=== PATIENT | female | born 1950 | race Caucasian/White ===

== ENCOUNTER 2018-12-09 10:05 | Inpatient (IN) | payer MEDICARE ==
[~2018-12-09] VITALS: Ht 162.6 cm; Wt 58.3 kg
[2018-12-09 11:17] LABS: BASOPHILS ABSOLUTE AUTO 0.06 K/mm3 (0.00-0.23); BASOPHILS PERCENT AUTO 1 % (0-2); EOSINOPHILS ABSOLUTE AUTO 0.03 K/mm3 (0.00-0.68); EOSINOPHILS PERCENT AUTO 0 % (0-6); Hematocrit 42.9 % (33.0-51.0); Hemoglobin 14.7 g/dL (11.5-16.0); IMMATURE GRAN ABSOLUTE AUTO 0.03 K/mm3 (0.00-0.10); IMMATURE GRAN PERCENT AUTO 0 % (0-1); LYMPHOCYTES ABSOLUTE AUTO 1.03 K/mm3 (0.84-5.20); LYMPHOCYTES PERCENT AUTO 12 % (21-46); MONOCYTES ABSOLUTE AUTO 0.66 K/mm3 (0.16-1.47); MONOCYTES PERCENT AUTO 8 % (4-13); Mean Corpuscular HGB 33.9 pg (26.0-34.0); Mean Corpuscular HGB Conc 34.3 g/dL (31.5-36.5); Mean Corpuscular Volume 99 fL (80-100); NEUTROPHILS ABSOLUTE AUTO 6.79 K/mm3 (1.96-9.15); NEUTROPHILS PERCENT AUTO 79 % (41-73); Platelet Count 277 K/mm3 (150-400); RDW Coefficient Variation 13.7 % (11.7-14.2); RDW Standard Deviation 50.4 fL (35.1-46.3); Red Blood Cell Count 4.33 M/mm3 (3.80-5.20)
[2018-12-09 11:28] LABS: Troponin I 0.069 ng/mL (0.000-0.040)
[2018-12-09 11:30] LABS: Alanine Aminotransfer (ALT/SGP 19 U/L (12-78); Albumin, Blood 3.6 g/dL (3.4-5.0); Albumin/Globulin Ratio 0.9 (0.8-1.8); Alk Phos 49 U/L (50-136); Anion Gap 9 mmol/L (6-16); Aspartate Aminotrans (AST/SGOT 24 U/L (12-37); Blood Urea Nitrogen 5 mg/dL (8-24); Bun/Creatinine Ratio 9.6 (12.0-20.0); CO2, Blood 34 mmol/L (21-32); Calcium, Blood 8.9 mg/dL (8.5-10.1); Chloride, Blood 98 mmol/L (98-108); Creatinine, Blood 0.52 mg/dL (0.40-1.00); Glomerular Filtration Rate >60 (60-); Glucose, Blood 103 mg/dL (70-99); Potassium, Blood 1.6 mmol/L (3.5-5.5); Sodium, Blood 141 mmol/L (136-145); Total Protein, Blood 7.6 g/dL (6.4-8.2)
[2018-12-09 12:15] LABS: Base Excess Venous 10.9 mmol/L; Bicarbonate Venous 32.6 mmol/L (24.0-30.0); PCO2 Venous 49.8 mmHg (38-42); PO2 Venous 49.5 mmHg (38-42); pH Blood Venous 7.45 (7.34-7.37)
[2018-12-09 13:12] LABS: Creatine Kinase MB 3.9 ng/mL (0.0-3.6); Creatine Kinase MB Index 2.4 (0.0-4.0)
[2018-12-09 13:55] LABS: Calcium, Ionized (POC) 0.94 mmol/L (1.10-1.46); Chloride (POC) 98 mmol/L (98-108); Creatinine (POC) 0.6 mg/dL (0.6-1.0); Glucose (ISTAT POC) 88 mg/dL (70-99); Hemoglobin (POC) 14.3 g/dL (12.0-16.0); Potassium (POC) <2.0 mmol/L (3.5-5.5); Sodium (POC) 143 mmol/L (135-148); Total CO2 (POC) 30 mmol/L (21-32)
[2018-12-09 17:03] LABS: Source, Urine Voided
[2018-12-09 17:37] LABS: Appearance, Urine Hazy (Clear); Bilirubin, Urine Neg (Neg); Blood, Urine 1+ (Neg); Color, Urine Yellow (P-Yellow); Glucose Qualitative, Urine Neg (Neg); Ketones, Urine Neg (Neg); Leukocyte Esterase, Urine 1+ (Neg); Nitrite, Urine Neg (Neg); Protein, Urine 2+ (Neg); Specific Gravity, Urine 1.005 (1.003-1.022); Urobilinogen, Urine NORM (Normal)
[2018-12-09 17:45] LABS: Red Blood Cells, Urine 0-2 /hpf (0-2); Squamous Epithelial Cells Mod /hpf (Few)
[2018-12-09 17:46] LABS: Bacteria Many /hpf
[2018-12-09 17:50] LABS: U Amphetamine Screen Not Detected; U Barbituate Screen Not Detected; U Benzodiazapine Screen Not Detected; U Buprenorphine Screen Not Detected; U Cannabinoids Screen Not Detected; U Cocaine Screen Not Detected; U Methadone Screen Not Detected; U Methamphetamine Screen Not Detected; U Opiates Screen Not Detected; U Oxycodone Screen Not Detected; U Phencyclidine Screen Not Detected; U Propoxyphene Screen Not Detected
--- NOTE | 2018-12-09 18:35 | NUR ---
REPORT RECEIVED FROM JUAN WINTER, ER DEPT., PATIENT ARRIVED VIA GURNEY AND WAS MOVED FROM BED TO RNEY BY 4 ASSIST, PATIENT SCREAMED IN PAIN D/T PAIN AND SWELLING IN BILATERAL LOWER EXTREMITIES, PATIENT WAS PLACED ON MONITOR, ARRIVED IN ICU WITH TEMPERATURE NAVAS, AFEBRILE, ADMISSION WEIGHT WAS 68.2 KG, PATIENT IS ON NICARDIPINE DRIP FOR HYPERTENSIVE EMERGENCY DIAGNOSIS AND BLOOD PRESSURES IN 230'S UPON ARRIVAL AT THE ER, ALSO 20 MEQ OF POTASSIUM INFUSING WITH ANOTHER BAG OF POTASSIUM WAITING TO BE INFUSED, PATIENT ROLLED WELL, LUNG SOUNDS CLEAR, PREVENTATIVELY PLACED ON 3 L NC, HR IN 80'S TO 100'S AT THIS TIME, SKIN DRY, AND SHOWS BLISTER ON LEFT BUTTOCK, PIV'S X 2 IN RIGHT FA 20 G BT'S ARE PRESENT, PATIENT IS ALERT AND ORIENTED AND ABLE TO ANSWER ALL QUESTIONS AND FOLLOW COMMANDS, CALL LIGHT IN REACH, WILL CONTINUE TO MONITOR AND GIVE REPORT TO ONCOMING AUTO BODY STRAIGHTENER.
--- NOTE | 2018-12-09 19:15 | NUR ---
ASSUMING CARE OF PT AT THIS TIME. PT REPORT RECEIVED AT BEDSIDE WITH OFFGOING NURSE, CARTER MARTINEZ. PT LAYING IN BED, SLEEPING UPON ENTERING THE ROOM. VS STABLE - SEE VS FS. CARDENE DRIP 2.5 MG/HR. PT DOES NOT APPEAR TO BE IN DISTRESS AT THIS TIME. WILL REVIEW PLAN OF CARE.
--- NOTE | 2018-12-09 19:30 | NUR ---
ASSESSMENT PT HX COMPLETED WITH PT. PT CALM, QUIET, COOPERATIVE, RESPONDS TO VERBAL STIMULI, SPONT OPENS EYES, A&O X4, TALKS AND ANSWERS QUESTIONS APPROPRIATELY, SMILING AT STAFF, DROWSY, LETHARGIC, OCC SLOW TO SPOND. PT STATES RECENT DIFFICULTY AT HOME COMPLETING ADL'S D/T "SWELLING IN MY LEGS". SENSATION INTACT BUE'S. DENIES N/T BUE'S. N/T BLE'S. PT STATES N/T TO BLE'S STARTED "6 MONTHS AGE WHEN THE SWELLING STARTED". PT KEE. NORMAL STRENGTH BUE'S. WEAKNESS BLE'S. PT STATES USING WALKER AT HOME. PT STATES "I HAVE BEEN WALKING AROUND LESS AND LESS AT HOME BECAUSE MY LEGS ARE SWOLLEN AND THEY HURT". PT ASSISTS WITH TURNS. PT C/O PAIN IN BLE'S. MEDICATED WITH TYLENOL PER PHYSICIAN'S ORDER / UTILIZED NONPHARM METHODS. PT STATES PAIN IN BLE'S IS TOLERABLE AFTER ADMINISTERING TYLENOL. PT STATES ONSTE OF PAIN IN BLE'S WAS 6 MONTHS AGO. PT STATES "I HAVE BEEN FEELING MORE DEPRESSED LATELY BECAUSE IT'S HARDER TO GET AROUND". PT DENIES SI. LUNGS CLEAR, LOWER LOBES DIMINISHED. SHALLOW BREATHING. PT ON 3L NC. OXY SAT >95%. RR 18. PT PLACED ON RA, BUT OXY SAT <90% WHILE SLEEPING. THUS, THIS RN TITRATED TO 2L NC. OXY SAT >90% WHILE ON 2L NC. AFEBRILE. NSR. HR 90'S. BP STABLE (SEE VS FS) WHILE ON CARDENE DRIP 2.5 MG/HR - WILL TITRATE TO EFFECT. STRONG RADIAL AND TIBIAL PULSES. FAINT TIBIAL PULSES. EDEMA BLE'S. WARM, PINK. HYPOACTIVE BT X4 QUADRANTS. ABD SOFT, NONTENDER, MILD DIST (PT STATES ABD DIST IS NORMAL). NO N/V. NO BM. PT STATES HAVING POOR APPETITE FOR SEVERAL DAYS AND DIFFICULTY OBTAINING FOOD AT HOME. PT TOLERATING PO FLUIDS. F/C IN PLACE: YELLOW URINE. PIV X3. KCL INFUSING.
--- NOTE | 2018-12-09 20:50 | NUR ---
DR. AISHWARYA NEFF CALLED ICU AT THIS TIME. DR. NEFF PLANING TO ORDER SCHEDULED ATENOLOL AND LISINOPRIL. DR. NEFF INSTRUCTED TO STOP CARDENE DRIP AND ADMINISTERING ATENOLOL AND LISINOPRIL. WAITING FOR VERIFICATION OF MEDICATIONS FROM PHARMACY AT THIS TIME. DR. NEFF PLANNING TO ORDER STAT LABS. DR. NEFF INSTRUCTED TO OBTAIN STAT LABS AFTER KCL HAS BEEN ADMINISTERED. KCL INFUSING AT THIS TIME. WILL CONTACT DR. NEFF WITH STAT LAB RESULTS.
--- NOTE | 2018-12-09 21:30 | NUR ---
24 HR URINE 24 HR URINE STARTED AT THIS TIME. ACCORDING TO AZAR IN LAB, CORTISOL FREE, URINE RANDOM IS PART OF THE 24 HR URINE. URINE PLACED ON ICE.
[2018-12-09 22:46] LABS: Albumin, Blood 2.9 g/dL (3.4-5.0); Anion Gap 6 mmol/L (6-16); Blood Urea Nitrogen 4 mg/dL (8-24); Bun/Creatinine Ratio 8.5 (12.0-20.0); CO2, Blood 32 mmol/L (21-32); Calcium, Blood 7.8 mg/dL (8.5-10.1); Chloride, Blood 106 mmol/L (98-108); Creatinine, Blood 0.47 mg/dL (0.40-1.00); Glomerular Filtration Rate >60 (60-); Glucose, Blood 97 mg/dL (70-99); Magnesium, Blood 1.9 mg/dL (1.6-2.4); Phosphorus, Blood 3.3 mg/dL (2.5-4.9); Potassium, Blood 2.8 mmol/L (3.5-5.5); Sodium, Blood 144 mmol/L (136-145)
--- NOTE | 2018-12-09 22:58 | NUR ---
DR. NEFF CALLED DR. NEFF AT THIS TIME. INFORMED DR. NEFF OF STAT LAB RESULTS. DR. NEFF ORDERED KCL 40 MEQ IV. WAITING FOR MEDICATION FROM PHARMACY AT THIS TIME. VS STABLE (SEE VS FS). DR. NEFF INSTRUCTED TO COMPLETE AM LABS AFTER COMPLETION OF KCL 40 MEQ IV.
--- NOTE | 2018-12-09 23:10 | NUR ---
DR. NEFF CALLED DR. NEFF AT 2305. PT HYPOTENSIVE (SEE VS FS). DR. NEFF ORDERED NS 500 ML BOLUS (WAITING FOR VERIFICATION OF MEDICATION FROM PHARMACY AT THIS TIME), ORDERED TO HOLD LISINOPRIL AND ATENOLOL IF SBP <140, AND ORDERED A NURSE NOTIFICATION TO MAINTAIN SBP 80 AND GREATER.
[2018-12-10 04:00] LABS: Hematocrit 36.5 % (33.0-51.0); Mean Corpuscular HGB 33.2 pg (26.0-34.0); Mean Corpuscular HGB Conc 32.9 g/dL (31.5-36.5); Mean Corpuscular Volume 101 fL (80-100); Mean Platelet Volume 12.8 fL (9.1-12.4); Platelet Count 209 K/mm3 (150-400); RDW Coefficient Variation 13.9 % (11.7-14.2); RDW Standard Deviation 52.3 fL (35.1-46.3); Red Blood Cell Count 3.61 M/mm3 (3.80-5.20); White Blood Cell Count 8.25 K/mm3 (4.00-11.30)
[2018-12-10 04:29] LABS: Alanine Aminotransfer (ALT/SGP 17 U/L (12-78); Albumin, Blood 2.8 g/dL (3.4-5.0); Albumin/Globulin Ratio 0.9 (0.8-1.8); Alk Phos 40 U/L (50-136); Anion Gap 7 mmol/L (6-16); Aspartate Aminotrans (AST/SGOT 28 U/L (12-37); Bilirubin, Direct 0.4 mg/dL (0.0-0.3); Bilirubin, Total 1.4 mg/dL (0.1-1.0); Blood Urea Nitrogen 4 mg/dL (8-24); Bun/Creatinine Ratio 7.5 (12.0-20.0); CO2, Blood 31 mmol/L (21-32); CPK Creatine Kinase 138 U/L (26-193); Calcium, Blood 7.8 mg/dL (8.5-10.1); Chloride, Blood 108 mmol/L (98-108); Creatinine, Blood 0.53 mg/dL (0.40-1.00); Globulin, Blood 3.2 g/dL (2.2-4.0); Glomerular Filtration Rate >60 (60-); Glucose, Blood 92 mg/dL (70-99); Magnesium, Blood 1.8 mg/dL (1.6-2.4); Phosphorus, Blood 3.6 mg/dL (2.5-4.9); Potassium, Blood 3.1 mmol/L (3.5-5.5); Sodium, Blood 146 mmol/L (136-145); Uric Acid, Blood 4.9 mg/dL (2.6-6.0)
--- NOTE | 2018-12-10 04:45 | NUR ---
DR. NEFF CALLED DR. NEFF AT THIS TIME. INFORMED DR. NEFF OF PT'S LABS, UO, AND VS. DR. NEFF ORDERED KCL 20 MEQ PO BID WITH FIRST DOSE NOW, ORDERED KCL 20 MEQ IVPB NOW, ORDERED STAT POTASSIUM AND IONIZED CALCIUM AT 0800, AND ORDERED NURSE NOTIFICATION TO CALL DR. NEFF WITH STAT POTASSIUM AND IONIZED CALCIUM RESULTS. WAITING FOR VERIFICATION OF MEDICATIONS FROM PHARMACY AT THIS TIME. WAITING FOR POTASSIUM IVPB FROM PHARMACY AT THIS TIME.
--- NOTE | 2018-12-10 05:35 | NUR ---
SHIFT ASSESSMENT NO ACUTE CHANGES NOTED T/O SHIFT. PT SLEPT T/O SHIFT. PT CALM, QUIET, COOPERATIVE, RESPONDS TO VERBAL STIMULI, SPONT OPENS EYES, A&O X4, TALKS AND ANSWERS QUESTIONS APPROPRAITELY, SMILING AT STAFF, DROWSY, LETHARGIC, OCC SLOW TO RESPOND. SENSATION INTACT BUE'S. DENIES N/T BUE'S. N/T BLE'S. PT KEE. NORMAL STRENGTH BUE'S. WEAKNESS BLE'S. PT USES WALKER AT HOME. PT ASSISTS WITH TURNS. PT REMAINED IN BED, SLEEPING T/O SHIFT. PT C/O DIFFICULTY WITH ADL'S AT HOME. PT C/O PAIN IN BLE'S AT BEGINNING OF THE SHIFT THAT RESOLVED WITH TYELNOL PRN AND NONPHARM METHODS. PT STATES RECENT DEPRESSION. DENIES SI. LUNGS CLEAR, LOWER LOBES DIMINISHED. SHALLOW BREATHING. PT ON 2L NC. OXY SAT REMAINS >90% WHILE ON 2L NC. RR 11 TO 30'S T/O SHIFT. OXY SAT <90% WHILE ON RA. AFEBRILE. SB TO NSR. NO PROLONGED QTc THIS AM ON RHYTHM STRIP. HR 50'S TO 90'S. BP STABLE AFTER ADMINSITERING NS 500 ML BOLUS. CARDENE DRIP D/C EARLIER IN SHIFT - SEE PREVIOUS NN. STRONG RADIAL AND TIBIAL PULSES. FAINT PEDAL PULSES. EDEMA BLE'. WARM, PINK SKIN. DAVID HOSE IN PLACE. HYPOACTIVE BT X4 QUADRANTS. ABD SOFT, NONTENDER, MILD DIST (PT STATES ABD DIST IS NORMAL). NO N/V. NO BM. PT TOLERATED PO FLUIDS. F/C IN PLACE: YELLOW URINE NOTED. 24 HR URINE STARTED AT 2130 ON 12/09/17. PIV X2. KCL 20 MEQ IVPB INFUSING. NS TKO AT 10 ML/HR. WILL CONT TO MONITOR PT AND WILL PROVIDE BEDSIDE REPORT TO ONCOMING NURSE THIS AM.
--- NOTE | 2018-12-10 08:25 | NUR ---
ASSUMED CARE PT. ALERT AND ORIENTED THIS AM. PT COOPERATIVE WITH CARE. PT REPORTS PAIN TO JULIANA SPRAGUE WITH TYLENOL. PT. ABLE TO ASSIST WITH TURNS IN BED. CURRENTLY ON 1LNC. BP WNL.PT. CONTINUES WITH NAVAS TEMP PROB DRAINING TO GRAVITY; TO BE REMOVED AFTER 24HR URINE. NADN THIS AM. CURRENTLY SALINE LOCKED. CALL LIGHT IN REACH.
--- NOTE | 2018-12-10 10:15 | NUR ---
PAIN PT. PAINFUL IN BILAT LE WHEN GETTING UP TO SHOWER CHAIR. AFTER SHOWER WHEN GETTING BACK TO BED. PT. SCREAMING OUT IN PAIN STATING" MY LEGS" REPORTS THE PAIN BURINING AND THROBBING. PT. SCREAMING AND CRYING RELATED TO PAIN. CALL TO DR. DOUGHERTY FOR PAIN MEDICINE. 25 MCG FENTANYL GIVEN ALONG WITH GABAPENTIN WITH NO RELIEF PT YELLING OUT "HELP ME HELP ME" AND CRYING. CALL BACK TO DR. DOUGHERTY. DILAUDID TO BE GIVEN.
--- NOTE | 2018-12-10 11:49 | NUR ---
CALL AGAIN TO DR. DOUGHERTY FOR PAIN ORDERS FOR ATIVAN AND TORDOL OBTAINED. PT. REPORTS MINIMAL RELIEF FROM PREVIOUS MEDICATIONS. LESS RESTLESS IN BED HOWEVER STILL TEARFUL, BRACING, AND GRIMICING. SPIRITUAL CARE AT BEDSIDE. PT NOW HYPERTENSIVE. MED PER ORDER. PT REPORTS PAIN CONTINUES TO PRIMARILY RIGHT LEG, UNCHANGED FROM AM ASSESSMENT, NO SWELLING, NO BRUISING, NO DEFORMITY NOTED. REMAINS TENDER TO TOUCH. PULSES PRESENT DISTAL. ASSISTED PT TO REPOSITION, LIGHTS DIMMED AND WARM BLANKET PROVIDED.
--- NOTE | 2018-12-10 14:00 | NUR ---
POST ADMIN OF ATIVAN AND TORDOL PT. SLEEPING IN ROOM, RR EVEN AND UNLABORED. BP TRENDING DOWN WITH RELAXATION. DR. DOUGHERTY IN TO SEE PT. CLARIFIED WITH DR. DOUGHERTY REGARDING NO RECHECK OF TROPONIN, WITH ST DEPRESSION. PER DR. DOUGHERTY AT THIS TIME WITH PT ASYMPTOMATIC OF CHEST DISCOMFORT/PAIN NO RECHECK AT THIS TIME.
--- NOTE | 2018-12-10 15:45 | NUR ---
At first visit, Ruby was in a great deal of pain and wanted prayer. I prayed for her and assured her of excellent care. T/C to Ruby's friend, Anat. She is a very devoted and loving friend. Anat and her dtr are Ruby's only support. Later, I met with Ruby and we spoke at length about her fears and life. She is fiercely independant and enjoys her solitude. She tels me she avoided going to physician "out of stubborness." She is hopeful physicians will find a solution and she will be able to return home. We completed a POLST and I encouraged an Advanced Directive if she wants Anat as MPOA. POLST awaiting physician's signature. DNR, Limited Interventions, no tube feeding. We prayed together at conclusion of visit. Ruby's pain is much better controlled due to excellent nursing care and attention. I will remain available.
--- NOTE | 2018-12-10 16:56 | NUR ---
PT TO CT SCAN
--- NOTE | 2018-12-10 17:00 | NUR ---
SHIFT SUMMARY PT. REMAINS ALERT T/O DAY. PAIN CONTROLLED POST ADMIN OF MULTIPLE MEDICATIONS WELL ATIVAN AFTER MOVEMENT. PT. C/O PAIN PRIMARILY TO RIGHT LEG. PT. REMAINS ON 3LNC T/O DAY WITH OCCASIONAL MOIST NON PRODUCTIVE COUGH. PT. ABLE TO ASSIST WITH REPOSITIONING IN BED. NAVAS REMAINS IN PLACE, DRAINING TO GRAVITY UNTIL 24 HOUR URINE IS COMPLETE. PT. FRIEND AT BEDSIDE T/O DAY.
--- NOTE | 2018-12-10 17:54 | NUR ---
REPORT TO FLOOR LAYER HELPER PT. VSS UPON TRANSFER. PT. BELONGINGS TAKEN TO PCU WITH PT. ENCOURAGED PT TO COMMUNICATE IF HAVING PAIN WITH STAFF. AMNA UPON TRANFER.
--- NOTE | 2018-12-10 18:23 | NUR ---
PT ARRIVED TO UNIT FROM ICU. BP ELEVATED. O2 SATS AT 88% AND 3L NC O2 PLACED ON PT. O2 SATS INCREASED TO 96%. PT MEDICATED FOR BP. WILL RECHECK IN 10 MIN. PT COMPLAINS OF PAIN FROM CRAMPING IN LEGS. PT WAS MEDICATED PRIOR TO ARRIVAL. LUNG SOUNDS ARE EXP WHEEZES IN THE UPPER LOBES. PT HAS OCCASIONAL COUGH. NAVAS PATENT AND DRAINING. PT ORIENTED TO UNIT. WILL CONTINUE TO MONITOR AND REPORT TO ONCOMING RN. CALL LIGHT IN REACH.
[2018-12-10 22:37] LABS: Protein, Urine Quantitative 53.1 mg/dL (0.0-11.9)
[2018-12-11 04:15] LABS: Hematocrit 37.3 % (33.0-51.0); Hemoglobin 12.2 g/dL (11.5-16.0)
--- NOTE | 2018-12-11 04:28 | NUR ---
SHIFT SUMMARY: PATIENT PAIN CONTROL HARD TO ACHIEVE, FENTANYL AND TYLENOL GIVEN PER MD ORDERS. PATIENT VSS, X1 EPISODE OF HIGHER BLOOD PRESSURE AT THE TIME PATIENT STATED THAT HER PAIN WAS 10/10. PRN HYDRALAZINE GIVEN PER MD ORDERS. NO OTHER ISSUES NOTED, CALL LIGHT WITHIN REACH, BED LOW AND LOCKED WITH FAMILY AT BEDSIDE ALL SHIFT. MONITORING CLOSELY.
[2018-12-11 04:37] LABS: Alanine Aminotransfer (ALT/SGP 14 U/L (12-78); Albumin/Globulin Ratio 0.9 (0.8-1.8); Alk Phos 44 U/L (50-136); Amylase, Blood 13 U/L (25-115); Anion Gap 10 mmol/L (6-16); Aspartate Aminotrans (AST/SGOT 22 U/L (12-37); Bilirubin, Direct 0.2 mg/dL (0.0-0.3); Bilirubin, Indirect 0.7 mg/dL (0.1-0.7); Bilirubin, Total 0.9 mg/dL (0.1-1.0); Blood Urea Nitrogen 6 mg/dL (8-24); CO2, Blood 28 mmol/L (21-32); Calcium, Blood 8.5 mg/dL (8.5-10.1); Chloride, Blood 106 mmol/L (98-108); Globulin, Blood 3.2 g/dL (2.2-4.0); Glomerular Filtration Rate >60 (60-); Glucose, Blood 93 mg/dL (70-99); Magnesium, Blood 1.8 mg/dL (1.6-2.4); Potassium, Blood 3.8 mmol/L (3.5-5.5); Sodium, Blood 144 mmol/L (136-145); Total Protein, Blood 6.2 g/dL (6.4-8.2)
--- NOTE | 2018-12-11 19:06 | NUR ---
SHIFT SUMMARY PT ALERT AND ORIENTED. PT STABLE AT THIS TIME. 02 SATS HAVE BEEN >92% ON 3L NC. BP WAS ELEVATED AT BEGINNING OF SHIFT AND HAS IMPROVED. PAIN HAS BEEN BETTER CONTROLLED THIS SHIFT. PT STATES IT IS TOLERABLE AT THIS TIME. PAIN MEDICATION HAS BEEN CHANGED SEE EMAR. ELOISE KRUEGER'D THIS SHIFT. PT HAS VOIDED SINCE NAVAS REMOVED BY BED MARY. NO OTHER CHANGES. PLAN TO DISCHARGE TO HALF-WAY THIS WEEKEND. REPORT GIVEN TO CRM MANAGER RN. CALL LIGHT IN REACH.
--- NOTE | 2018-12-12 02:03 | NUR ---
TRANSFER: REPORT GIVEN TO [facility] FLOOR RN AT BEDSIDE UPON TRANSFER OF PATIENT. VSS, PATIENT INTRODUCED TO NURSE.
[2018-12-12 04:54] LABS: Hematocrit 34.7 % (33.0-51.0); Hemoglobin 11.1 g/dL (11.5-16.0)
[2018-12-12 05:10] LABS: Albumin, Blood 2.5 g/dL (3.4-5.0); Anion Gap 11 mmol/L (6-16); Blood Urea Nitrogen 9 mg/dL (8-24); Bun/Creatinine Ratio 16.7 (12.0-20.0); CO2, Blood 31 mmol/L (21-32); Calcium, Blood 8.4 mg/dL (8.5-10.1); Chloride, Blood 102 mmol/L (98-108); Creatinine, Blood 0.54 mg/dL (0.40-1.00); Glomerular Filtration Rate >60 (60-); Glucose, Blood 82 mg/dL (70-99); Magnesium, Blood 1.6 mg/dL (1.6-2.4); Phosphorus, Blood 3.7 mg/dL (2.5-4.9); Potassium, Blood 2.9 mmol/L (3.5-5.5); Sodium, Blood 144 mmol/L (136-145)
--- NOTE | 2018-12-12 16:15 | NUR ---
PT IS A/OX3, PLEASANT AND COOPERATIVE, THE PT APPEARS TO BE BREATHING EASILY AT REST ON OXYGEN, TODAY THE PT C/O PAIN IN HER LEGS T/O THE DAY, THE PT WAS MEDICATED FOR PAIN X2 AND WITH ATIVAN TO HELP RELAX THE PT, THE PT WAS UP THIS AM FOR BREAKFAST AND LUNCH INTO THE CHAIR AND TOLERATD IT WELL, THE PT WORKED WITH THE PHYSICAL THERAPIST TODAY, CALL LIGHT IN REACH, WILL CONTINUE TO MONITOR FOR CHANGES
--- NOTE | 2018-12-12 18:33 | NUR ---
pt is unarousable AT 1800, UPON ENTERING THE ROOM THE PT APPEARED TO BE ASLEEP BREATHING EASILY, HOWEVER, THE PTS OXYGEN WAS OFF, THE PTS FINGERS WERE BLUE IN COLOR PULSE OX WAS TAKEN ON THE GREAT TOE SATS WERE IN THE 50'S, OXYGEN WAS TURNED UP TO 5L/MIN, THE PULSE OX WAS PLACED ON THE SECONED TOE AND THE SATURATION READING IMMEDIATLY INCREASED TO 92 %, VS TAKEN WERE WNL, THE CHARGE NURSE ELLIOT WAS CALLED TO THE ROOM, CHELSEY ZARATE THE INSIDE SALES MANAGER AND I ALL ATTEMPTED TO AROUSE THE PT WITHOUT SUCCESS, DR. DOUGHERTY WAS CALLED, AN ORDER FOR CONTINUOS BIOX WAS PLACED PER HIS REQUEST, THE STATED THAT THE PT HAS RESPONED ON 3 DIFFERENT OCCASIONS IN A SIMILAR WAY WHEN WE TRY TO CONTROL HER PAIN. THE PT IS PINK IN COLOR AT THIS TIME, BREATHS ARE EVEN AND UNLABORED, O2 SATS IN THE HIGH 90% ON 5L/MIN, CALL LIGHT IN REACH. THE PULSE OX WAS PLACED ON THE PTS S
[2018-12-13 04:54] LABS: Hematocrit 32.5 % (33.0-51.0); Hemoglobin 10.7 g/dL (11.5-16.0)
[2018-12-13 05:21] LABS: Albumin, Blood 2.4 g/dL (3.4-5.0); Anion Gap 8 mmol/L (6-16); Blood Urea Nitrogen 9 mg/dL (8-24); Bun/Creatinine Ratio 16.7 (12.0-20.0); CO2, Blood 34 mmol/L (21-32); Calcium, Blood 8.1 mg/dL (8.5-10.1); Chloride, Blood 98 mmol/L (98-108); Creatinine, Blood 0.54 mg/dL (0.40-1.00); Glomerular Filtration Rate >60 (60-); Glucose, Blood 83 mg/dL (70-99); Magnesium, Blood 1.6 mg/dL (1.6-2.4); Phosphorus, Blood 3.5 mg/dL (2.5-4.9); Sodium, Blood 140 mmol/L (136-145)
--- NOTE | 2018-12-13 16:29 | NUR ---
PT A/OX3, UP WITH ASSIT TO THE CHAIR, TODAY THE PT WAS ABLE TO GET UP FOR BREAKAST AND SIT IN THE CHAIR, FOR APROXIMATLY 1 HOUR, THE PT WAS ALSO UNABLE TO URINATE, AFTER THE PT WAS TRANSFERED BACK TO THE BED SHE WAS JOE TO START URINATING USEING THE BED MARY, THE PT WAS MEDICATED FOR PAIN X2, AND WAS GIVEN ATIVAN X1 TODAY SO FAR, THIS AFTERNOON THE PT WAS DISORIENTED SOME WHAT HOWEVER WAS EASILY RE DIRECTED TO WHERE SHE WAS AT, PT CONTINUES TO NEED OXYGEN AT 3L/MIN, THE PT IS ON A CONTINUOS BIOX AT THIS TIME, CALL LIGHT IN REACH, WILL CONTINUE TO MONITOR AND ASSESS FOR CHANGES
[2018-12-14 04:45] LABS: Hematocrit 34.7 % (33.0-51.0); Hemoglobin 11.2 g/dL (11.5-16.0)
[2018-12-14 05:05] LABS: Albumin, Blood 2.6 g/dL (3.4-5.0); Anion Gap 8 mmol/L (6-16); Blood Urea Nitrogen 8 mg/dL (8-24); Bun/Creatinine Ratio 15.2 (12.0-20.0); CO2, Blood 40 mmol/L (21-32); Calcium, Blood 8.2 mg/dL (8.5-10.1); Chloride, Blood 94 mmol/L (98-108); Creatinine, Blood 0.53 mg/dL (0.40-1.00); Glomerular Filtration Rate >60 (60-); Glucose, Blood 86 mg/dL (70-99); Magnesium, Blood 1.6 mg/dL (1.6-2.4); Phosphorus, Blood 3.9 mg/dL (2.5-4.9); Potassium, Blood 3.7 mmol/L (3.5-5.5); Sodium, Blood 142 mmol/L (136-145)
--- NOTE | 2018-12-14 19:58 | NUR ---
SHIFT SUMMARY CLEMENCIA COMPLAINED OF PAIN IN HER LEGS AND BACK FOR WHICH SHE RECEIVED OXY AND FLEXERIL WHICH WORKED WELL. HAD TO INCREASE HER OXYGEN FROM 3L AT BEGINNING OF SHIFT TO 11L BY HIGH FLOW NASAL CANNULA BY THE END OF THE SHIFT. DR DOUGHERTY AWARE OF INCREASE IN OXYGEN NEEDS. PT DESATS VERY QUICKLY OFF OF OXYGEN. PT BECOMES AGITATED AND PULLS OF OXYGEN. ALSO INCREASED CONFUSION NOTED AND ALSO INFORMED DR DOUGHERTY OF THIS. USING BED MARY FOR URINE AND URINE CLOUDY. AWARE. [facility]
--- NOTE | 2018-12-15 01:16 | NUR ---
1230 PT APPEARS TO BE SLEEPING AT THIS TIME, BREATHS EVEN UNLABORED, TITRATED O2 TO 6L/MIN FROM 12L/MIN, CONTINUOS BIOX ON SATS STEADY AT 97% AT THIS TIME
--- NOTE | 2018-12-15 04:23 | NUR ---
PT IS A/OX3, MILD PERIODS OF CONFUSION AT TIMES EASILY REDIRECTED, THE PT WAS ON O2 AT 11-12 L/MIN AT THE START OF THIS SHIFT HOWEVER HER OXYGEN WAS TITRATED DOWN TO 4L/MIN T/O THE NIGHT, THE PT WAS MEDICATED FOR PAIN X1, AND WAS GIVEN ATIVAN 1 MG AT BEDTIME, THE PT WAS PLEASANT AND COOPERATIVE T/O THE NIGHT THE PT APPEARED TO BE SLEEPING T/O THE NIGHT, THE PT HAD SOME INCOTENCE HEAVY WET ATTENDS X2, CALL LIGHT IN REACH, BED ALARM ON, BED IN LOW POSITION
[2018-12-15 05:10] LABS: BASOPHILS ABSOLUTE AUTO 0.05 K/mm3 (0.00-0.23); BASOPHILS PERCENT AUTO 1 % (0-2); EOSINOPHILS ABSOLUTE AUTO 0.11 K/mm3 (0.00-0.68); EOSINOPHILS PERCENT AUTO 1 % (0-6); Hematocrit 38.8 % (33.0-51.0); Hemoglobin 12.3 g/dL (11.5-16.0); IMMATURE GRAN ABSOLUTE AUTO 0.03 K/mm3 (0.00-0.10); IMMATURE GRAN PERCENT AUTO 0 % (0-1); LYMPHOCYTES ABSOLUTE AUTO 1.76 K/mm3 (0.84-5.20); LYMPHOCYTES PERCENT AUTO 20 % (21-46); MONOCYTES ABSOLUTE AUTO 1.03 K/mm3 (0.16-1.47); MONOCYTES PERCENT AUTO 12 % (4-13); Mean Corpuscular HGB 33.4 pg (26.0-34.0); Mean Corpuscular HGB Conc 31.7 g/dL (31.5-36.5); Mean Corpuscular Volume 105 fL (80-100); Mean Platelet Volume 12.7 fL (9.1-12.4); NEUTROPHILS ABSOLUTE AUTO 5.63 K/mm3 (1.96-9.15); NEUTROPHILS PERCENT AUTO 65 % (41-73); Platelet Count 264 K/mm3 (150-400); RDW Coefficient Variation 13.2 % (11.7-14.2); RDW Standard Deviation 51.5 fL (35.1-46.3); Red Blood Cell Count 3.68 M/mm3 (3.80-5.20); White Blood Cell Count 8.61 K/mm3 (4.00-11.30)
[2018-12-15 05:19] LABS: Magnesium, Blood 1.9 mg/dL (1.6-2.4)
[2018-12-15 05:20] LABS: Albumin, Blood 2.9 g/dL (3.4-5.0); Blood Urea Nitrogen 13 mg/dL (8-24); Bun/Creatinine Ratio 17.5 (12.0-20.0); Calcium, Blood 9.3 mg/dL (8.5-10.1); Chloride, Blood 91 mmol/L (98-108); Creatinine, Blood 0.74 mg/dL (0.40-1.00); Glomerular Filtration Rate >60 (60-); Glucose, Blood 96 mg/dL (70-99); Phosphorus, Blood 4.8 mg/dL (2.5-4.9); Potassium, Blood 4.5 mmol/L (3.5-5.5); Sodium, Blood 140 mmol/L (136-145)
[2018-12-15 05:33] LABS: Anion Gap Unable to Calculate mmol/L (6-16); CO2, Blood >45 mmol/L (21-32)
[2018-12-15 07:06] LABS: PCO2 Arterial 66.8 mmHg (35-45); PO2 Arterial 53.4 mmHg (80-100); pH Blood Arterial 7.46 (7.35-7.45)
--- NOTE | 2018-12-15 08:40 | NUR ---
NOTIFIED DR. DOUGHERTY PT'S ABG RESULTS ARE IN AND PT'S HCO3 IS 43.7, CO2 66.8 AND [address]46. NOTIFIED DR. DOUGHERTY RESPIRATORY THERAPY RECOMMENDING BIPAP FOR PT. DR. DOUGHERTY SAID OK TO ORDER BIPAP. ORDER ENTERED. RESPIRATORY THERAPIST CAMERON NOTIFIED. NO OTHER NEW ORDERS AT THIS TIME.
[2018-12-15 12:45] LABS: ALDOS/RENIN RATIO <3.7 (0.0-30.0); ALDOSTERONE <1.0 ng/dL (0.0-30.0)
[2018-12-15 12:50] LABS: Potassium, Blood 4.2 mmol/L (3.5-5.5)
--- NOTE | 2018-12-15 12:58 | NUR ---
12/15/18 1258 Nate Rust History, Chart, Medications and Allergies reviewed before start of procedure.MONITOR INTACT WITH CONTINUOUS PULSE OXIMETRY AND INTERMITTENT BP.3-LEAD EKG REVIEWED WITH PHYSICIAN PRIOR TO START OF PROCEDURE.O2 VIA N/C INTACT THROUGHOUT SEDATION/PROCEDURE. Patient confirms NPO status and agrees with scheduled surgery.PATIENT DETERMINED TO BE ASA APPROPRIATE FOR PROPOFOL SEDATION PRIOR TO START OF PROCEDURE BY DR. GOEL.
--- NOTE | 2018-12-15 13:09 | NUR ---
NOTIFIED DR. NEFF PT'S POTASSIUM 4.1 AND CO2 [address] NEFF SAID TO ORDER ONE TIME DOSE PO 20 MEQ POTASSIUM NOW AND HOLD OTHER SCHEDULED DOSES OF POTASSIUM AND ALDACTONE TODAY. DR. NEFF SAID TO ORDER STAT KCL LAB AT 2100. NO OTHER NEW ORDERS AT THIS TIME.
--- NOTE | 2018-12-15 19:38 | NUR ---
SHIFT SUMMARY- PT WENT FOR BRONCH THIS AFTERNOON. PT HAS NO DIFFICULTY SWALLOWING THIS PM. PT TOLERATED DINNER. PT 8L ON HIGH FLOW NC. PT REMOVED O2 THIS AFTERNOON AND HER SATS WENT DOWN TO MID 70'S. REMINDED PT THE IMPORTANCE OF LEAVING O2 ON. PT DENIES SOB. BIPAP ORDERED FOR PT. SEE PREVIOUS NOTES. PT C/O BLE PAIN. MEDS GIVEN PER EMAR. NO OTHER SIGNIFICANT CHANGES THIS SHIFT.
[2018-12-16 04:50] LABS: BASOPHILS ABSOLUTE AUTO 0.08 K/mm3 (0.00-0.23); BASOPHILS PERCENT AUTO 1 % (0-2); EOSINOPHILS PERCENT AUTO 1 % (0-6); Hematocrit 37.1 % (33.0-51.0); IMMATURE GRAN ABSOLUTE AUTO 0.06 K/mm3 (0.00-0.10); IMMATURE GRAN PERCENT AUTO 1 % (0-1); LYMPHOCYTES ABSOLUTE AUTO 1.25 K/mm3 (0.84-5.20); LYMPHOCYTES PERCENT AUTO 11 % (21-46); MONOCYTES ABSOLUTE AUTO 1.29 K/mm3 (0.16-1.47); MONOCYTES PERCENT AUTO 11 % (4-13); Mean Corpuscular HGB 33.6 pg (26.0-34.0); Mean Corpuscular HGB Conc 32.3 g/dL (31.5-36.5); Mean Corpuscular Volume 104 fL (80-100); NEUTROPHILS ABSOLUTE AUTO 8.95 K/mm3 (1.96-9.15); NEUTROPHILS PERCENT AUTO 76 % (41-73); Platelet Count 276 K/mm3 (150-400); RDW Coefficient Variation 13.3 % (11.7-14.2); RDW Standard Deviation 50.8 fL (35.1-46.3); Red Blood Cell Count 3.57 M/mm3 (3.80-5.20); White Blood Cell Count 11.73 K/mm3 (4.00-11.30)
[2018-12-16 05:04] LABS: Albumin, Blood 2.7 g/dL (3.4-5.0); Anion Gap 9 mmol/L (6-16); Blood Urea Nitrogen 13 mg/dL (8-24); CO2, Blood 36 mmol/L (21-32); Calcium, Blood 8.9 mg/dL (8.5-10.1); Chloride, Blood 94 mmol/L (98-108); Creatinine, Blood 0.72 mg/dL (0.40-1.00); Glomerular Filtration Rate >60 (60-); Glucose, Blood 90 mg/dL (70-99); Magnesium, Blood 2.2 mg/dL (1.6-2.4); Phosphorus, Blood 5.2 mg/dL (2.5-4.9); Potassium, Blood 4.2 mmol/L (3.5-5.5); Sodium, Blood 139 mmol/L (136-145)
[2018-12-16 06:18] LABS: ALDOS/RENIN RATIO <3.5 (0.0-30.0); ALDOSTERONE <1.0 ng/dL (0.0-30.0)
--- NOTE | 2018-12-16 07:28 | NUR ---
Shift summary: Pt on 7 liters O2 to keep sats > 90 percent. Pt does not understand a continuous pulse ox and keeps pulling it off during the night. Pt on flutter vest early in shift- seems to help with the mucous. Pt given as much oxycodone and ativan during the night to help with pain in legs and her anxiety.
[2018-12-16 17:35] LABS: Potassium, Blood 3.8 mmol/L (3.5-5.5)
--- NOTE | 2018-12-16 18:39 | NUR ---
PT IS A/OX3, PLEASANT AND COOPERATIVE, PT HAS PERIODS ON CONFUSION IN WHICH SHE TAKES HER OXYGEN OFF, PT WAS MEDICATED X1 TODAY AND GIVEN ATIVAN X1 PT WAS ABLE TO RELAX FOR SOME TOME AFTER THAT, PT IS A 1 PERSON ASSIST UP AND WAS UP FOR BREAKFAST AND DINNER TODAY, PT USED THE BED PAIN WELL THE BSC COMMODE, PT IS ON A CONTINUOS BIOX AND CONTINUES TO NEED OXYGEN AT 8L/MIN, CALL LIGHT IN REACH, PT IS UP IN THE CHAIR AT THIS TIME, CHAIR ALARM IN PLACE
[2018-12-16 20:07] LABS: METANEPHRINE, UR 429 ug/L (Undefined)
[2018-12-17 04:41] LABS: BASOPHILS ABSOLUTE AUTO 0.07 K/mm3 (0.00-0.23); BASOPHILS PERCENT AUTO 1 % (0-2); EOSINOPHILS PERCENT AUTO 1 % (0-6); Hematocrit 36.3 % (33.0-51.0); Hemoglobin 11.3 g/dL (11.5-16.0); IMMATURE GRAN ABSOLUTE AUTO 0.05 K/mm3 (0.00-0.10); IMMATURE GRAN PERCENT AUTO 1 % (0-1); LYMPHOCYTES ABSOLUTE AUTO 1.06 K/mm3 (0.84-5.20); LYMPHOCYTES PERCENT AUTO 11 % (21-46); MONOCYTES ABSOLUTE AUTO 0.97 K/mm3 (0.16-1.47); MONOCYTES PERCENT AUTO 10 % (4-13); Mean Corpuscular HGB Conc 31.1 g/dL (31.5-36.5); Mean Corpuscular Volume 106 fL (80-100); Mean Platelet Volume 11.9 fL (9.1-12.4); NEUTROPHILS ABSOLUTE AUTO 7.51 K/mm3 (1.96-9.15); NEUTROPHILS PERCENT AUTO 77 % (41-73); Platelet Count 274 K/mm3 (150-400); RDW Coefficient Variation 13.4 % (11.7-14.2); RDW Standard Deviation 52.7 fL (35.1-46.3); Red Blood Cell Count 3.42 M/mm3 (3.80-5.20); White Blood Cell Count 9.76 K/mm3 (4.00-11.30)
[2018-12-17 05:06] LABS: Magnesium, Blood 2.6 mg/dL (1.6-2.4)
[2018-12-17 05:09] LABS: Albumin, Blood 2.5 g/dL (3.4-5.0); Anion Gap 7 mmol/L (6-16); Blood Urea Nitrogen 18 mg/dL (8-24); Bun/Creatinine Ratio 20.9 (12.0-20.0); CO2, Blood 36 mmol/L (21-32); Calcium, Blood 9.2 mg/dL (8.5-10.1); Chloride, Blood 97 mmol/L (98-108); Creatinine, Blood 0.86 mg/dL (0.40-1.00); Glomerular Filtration Rate >60 (60-); Glucose, Blood 102 mg/dL (70-99); Phosphorus, Blood 6.2 mg/dL (2.5-4.9); Potassium, Blood 4.2 mmol/L (3.5-5.5); Sodium, Blood 140 mmol/L (136-145)
--- NOTE | 2018-12-17 05:30 | NUR ---
shift summary. Pt remains on 7 liters o2 high flow oxygen to keep her sats > 88. Pt does not like oxygen and cont pulse ox and continually takes it off and picks at pulse ox making it go off almost constantly. Pt does not understand the concept but seems to be alert and oriented otherwise. Gave toradol and tylenol for leg pain last night and got some relief. Pt is very weak- requires 1-2 person assist.
--- NOTE | 2018-12-17 17:00 | NUR ---
ASSUMED CARE OF PATIENT, REPORT RECEIVED FROM JUAN ATKINSON.
--- NOTE | 2018-12-17 17:30 | NUR ---
SUMMARY PT CONFUSED/FORGETFUL THIS AM, @ X'S TAKES OFF O2 & PULLS @ CONT BIOX INSPITE OF REDIRECT. SHE IS OTHERWISE CALM/PLEASANT. WEAK GAIT, 1 ASSIST TO BR W FWW/GB. NURSE RN BSN IN TO SEE PT TODAY STATE LEFT LUNG COLLAPSE, REQUEST AGGRESSIVE CHEST CPT 6X/DAY, RESPTHER NOTIFIED. O2 @ 8L HIFLO CANNULA, BIOX 90-93%. LUNGS DECREASED T/O. PT STATE BLE & LOW BACK PAIN THIS AM, PRN ULTRAM GIVEN FOR RELIEF. THIS AFTERNOON SOCIAL SECRETARY NOTIFY THAT PT WILL BE MOVED TO SCU RM [id number], REPORT GIVEN WILLIAM MARITNEZ.
--- NOTE | 2018-12-17 17:54 | NUR ---
SUMMARY PT IS A/O X4, PLEASANT AFFECT. SHE IS WEAK/FATIGUED, STATE SOB CONTINUES HOWEVER IMPROVED SINCE ADMIT. O2 @ 2L HOME DOSE, BIOX >90%. WBC 13.4, LUNGS COARSE W RHONCHI, HISTOLOGY SUPERVISOR COARSE COUGH. IV ANTIBX CONTINUE. HAVE GIVEN PRN TESSALON X2 TODAY. SHE HAD MIGRAINE H/A THIS AM, IMITREX GIVEN X2 DOSES FOR RELIEF. HR HAS BEEN SOMEWHAT TACHY, DR EVANS ORDER TELEMETRY, SR W PAC'S @ 99.
--- NOTE | 2018-12-17 18:00 | NUR ---
PATIENT FELL WHILE TRYING TO GET OOB TO USE RESTROOM. BED ALARM WAS SET, BUT STAFF COULD NIT GET THERE IN TIME TO STOP THE FALL. DR. MCKEON WAS NOTIFIED AND DUE TO PATIENTS CONFUSION AND FALL A VEST RESTRAINT WAS PLACED FOR PATIENTS SAFETY. PATIENT REPORTS HER BUTTOCKS HURTS AFTER FALL, BUT DENIES ANY PAIN ANYWHERE ELSE.
--- NOTE | 2018-12-18 04:12 | NUR ---
68 Y/O FEMALE REQUIRED REPOSITIONING FREQUENTLY THIS EVENING AFTER PT REMOVES OXYGEN VIA NASAL CANNULA FROM NARES AT TIMES REQUIRING STAFF TO REAPPLY O2. PT ALERT AND ORIENTED X 1, ABLE TO FOLLOW SIMPLE VERBAL COMMANDS. PT DENIES PAIN/NAUSEA. PTS BED LOW POSITION, CALL LIGHT AT SIDE, BED ALARM ON.
[2018-12-18 05:01] LABS: BASOPHILS ABSOLUTE AUTO 0.06 K/mm3 (0.00-0.23); BASOPHILS PERCENT AUTO 0 % (0-2); EOSINOPHILS ABSOLUTE AUTO 0.18 K/mm3 (0.00-0.68); EOSINOPHILS PERCENT AUTO 1 % (0-6); Hematocrit 37.7 % (33.0-51.0); Hemoglobin 11.9 g/dL (11.5-16.0); IMMATURE GRAN ABSOLUTE AUTO 0.13 K/mm3 (0.00-0.10); IMMATURE GRAN PERCENT AUTO 1 % (0-1); LYMPHOCYTES ABSOLUTE AUTO 1.19 K/mm3 (0.84-5.20); LYMPHOCYTES PERCENT AUTO 8 % (21-46); MONOCYTES ABSOLUTE AUTO 1.29 K/mm3 (0.16-1.47); MONOCYTES PERCENT AUTO 9 % (4-13); Mean Corpuscular HGB 33.3 pg (26.0-34.0); Mean Corpuscular HGB Conc 31.6 g/dL (31.5-36.5); Mean Corpuscular Volume 106 fL (80-100); Mean Platelet Volume 11.9 fL (9.1-12.4); NEUTROPHILS PERCENT AUTO 81 % (41-73); Platelet Count 353 K/mm3 (150-400); RDW Coefficient Variation 13.6 % (11.7-14.2); RDW Standard Deviation 52.5 fL (35.1-46.3); Red Blood Cell Count 3.57 M/mm3 (3.80-5.20); White Blood Cell Count 14.85 K/mm3 (4.00-11.30)
[2018-12-18 05:17] LABS: Albumin, Blood 2.9 g/dL (3.4-5.0); Anion Gap 8 mmol/L (6-16); Blood Urea Nitrogen 25 mg/dL (8-24); Bun/Creatinine Ratio 22.5 (12.0-20.0); CO2, Blood 35 mmol/L (21-32); Calcium, Blood 9.7 mg/dL (8.5-10.1); Chloride, Blood 96 mmol/L (98-108); Creatinine, Blood 1.11 mg/dL (0.40-1.00); Glomerular Filtration Rate 52 (60-); Glucose, Blood 133 mg/dL (70-99); Magnesium, Blood 2.7 mg/dL (1.6-2.4); Potassium, Blood 5.9 mmol/L (3.5-5.5); Sodium, Blood 139 mmol/L (136-145)
[2018-12-18 12:07] LABS: CREATININE, URINE 77.3 mg/dL (Not Estab.)
--- NOTE | 2018-12-18 18:03 | NUR ---
SPOKE WITH DR. MCKEON ABOUT PATIENTS INCREASED CONFUSION THROUGHOUT THE SHIFT. PATIENT HAS BECOME COMBATIVE, PULLING AT HER LINES AND RESTLESS IN THE BED. L PUPIL IS 6 AND R PUPIL A 2 AT THIS TIME AND MD TOLD ABOUT THIS WELL. WRIST RESTRAINTS ORDERED AND DR. MCKEON TO PUT IN OTHER ORDERS.
[2018-12-18 18:50] LABS: PO2 Arterial 66.3 mmHg (80-100); pH Blood Arterial 7.44 (7.35-7.45)
[2018-12-19 06:02] LABS: BASOPHILS ABSOLUTE AUTO 0.09 K/mm3 (0.00-0.23); BASOPHILS PERCENT AUTO 1 % (0-2); EOSINOPHILS ABSOLUTE AUTO 0.19 K/mm3 (0.00-0.68); EOSINOPHILS PERCENT AUTO 2 % (0-6); Hematocrit 36.4 % (33.0-51.0); Hemoglobin 11.6 g/dL (11.5-16.0); IMMATURE GRAN ABSOLUTE AUTO 0.08 K/mm3 (0.00-0.10); IMMATURE GRAN PERCENT AUTO 1 % (0-1); LYMPHOCYTES ABSOLUTE AUTO 1.53 K/mm3 (0.84-5.20); LYMPHOCYTES PERCENT AUTO 15 % (21-46); MONOCYTES ABSOLUTE AUTO 1.27 K/mm3 (0.16-1.47); MONOCYTES PERCENT AUTO 13 % (4-13); Mean Corpuscular HGB 32.7 pg (26.0-34.0); Mean Corpuscular HGB Conc 31.9 g/dL (31.5-36.5); Mean Platelet Volume 11.9 fL (9.1-12.4); NEUTROPHILS ABSOLUTE AUTO 7.01 K/mm3 (1.96-9.15); NEUTROPHILS PERCENT AUTO 69 % (41-73); Platelet Count 368 K/mm3 (150-400); RDW Coefficient Variation 13.5 % (11.7-14.2); RDW Standard Deviation 51.3 fL (35.1-46.3); Red Blood Cell Count 3.55 M/mm3 (3.80-5.20); White Blood Cell Count 10.17 K/mm3 (4.00-11.30)
[2018-12-19 06:09] LABS: Albumin, Blood 2.9 g/dL (3.4-5.0); Anion Gap 7 mmol/L (6-16); Blood Urea Nitrogen 18 mg/dL (8-24); Bun/Creatinine Ratio 24.4 (12.0-20.0); CO2, Blood 34 mmol/L (21-32); Calcium, Blood 9.7 mg/dL (8.5-10.1); Chloride, Blood 99 mmol/L (98-108); Creatinine, Blood 0.74 mg/dL (0.40-1.00); Glomerular Filtration Rate >60 (60-); Glucose, Blood 92 mg/dL (70-99); Magnesium, Blood 2.4 mg/dL (1.6-2.4); Phosphorus, Blood 5.1 mg/dL (2.5-4.9); Potassium, Blood 4.4 mmol/L (3.5-5.5); Sodium, Blood 140 mmol/L (136-145)
[2018-12-19 06:36] LABS: Mean Corpuscular Volume 103 fL (80-100)
--- NOTE | 2018-12-19 07:47 | NUR ---
NOC SHIFT SUMMARY PT HAS BEEN VERY CONFUSED, DISORIENTED, AND COMBATIVE AT TIME THIS SHIFT. TREATED WITH ATIVAN WITH MODERATE SUCCESS. PT WAS BLADDER SCANNED THIS NIGHT AND FOUND TO HAVE GREATER THAN 999ML IN BLADDER. OBTAINED ORDER FROM DR. CUMMINGS TO STRAIGHT CATH PT AND DRAINED 1800ML CAMRON URINE. PT TOLERATED WELL AND LESS AGITATED AFTER THIS THOUGH ONLY MODERATELY SO. ODER FOR BLADDER SCAN [id number] X2 MORE SCANS ORDERED WELL. ONCOMING NURSE AWARE OF THIS. VS HAVE BEEN STABLE. O2 SATS IN THE MID 90'S ON 3LNC. REPORT TO ONCOMING NURSE.
--- NOTE | 2018-12-19 15:30 | NUR ---
PATIENT BLADDER SCANNED. MONITOR SHOWED GREATER THAN 999. 900ML TAKEN OUT VIA STRAIGHT CATH.
--- NOTE | 2018-12-19 18:25 | NUR ---
PATIENT SLEPT THE WHOLE MORNING. AROUND 1500 SHE WAS BLADDER SCANNED AND FOUND TO HAVE GREATER THAN 999. STRAIGHT CATHED AND GOT 900 OUT. PATIENT CONTINUES TO REMAIN IN RESTRAINTS SHE ATTEMPTS TO GET OUT OF BED AND IS A FALLS RISK. SHE CONTINUES TO PULL AT HER O2 LINES. SHE REFUSED DINNER AND HAS SLEPT MOST OF THE SHIFT.
--- NOTE | 2018-12-20 04:28 | NUR ---
NOC SHIFT SUMMARY PT HAS BEEN ANXIOUS, CONFUSED, AND AGRESSIVE WITH CARE THIS SHIFT. RESTRAINTS HAVE BEEN NECESSARY SHE PULLS ON LINES, REMOVES NC AND DESATS DOWN TO 80, IS AGRESSIVE AND ATTEMPTS TO DIG NAILS INTO STAFF, AND ATTEMPTS TO GET OUT OF BED WHILE BEING A FALL RISK. SHE IS CONFUSED AND ALERT ONLY TO SELF. NO ACUTE CHANGES NOTED FROM PREVIOUS NOC SHIFT. WAS BLADDER SCANNED AND FOUND TO BE RETAINING URINE. STRAIGHT CATHED AND OBTAINED 800ML YELLOW URINE. CURRENTLY APPEARS IN NO ACUTE DISTRESS. WILL CONTINUE TO MONITOR.
[2018-12-20 05:03] LABS: BASOPHILS ABSOLUTE AUTO 0.14 K/mm3 (0.00-0.23); BASOPHILS PERCENT AUTO 1 % (0-2); EOSINOPHILS ABSOLUTE AUTO 0.18 K/mm3 (0.00-0.68); EOSINOPHILS PERCENT AUTO 2 % (0-6); Hematocrit 39.4 % (33.0-51.0); IMMATURE GRAN ABSOLUTE AUTO 0.05 K/mm3 (0.00-0.10); IMMATURE GRAN PERCENT AUTO 1 % (0-1); LYMPHOCYTES ABSOLUTE AUTO 1.64 K/mm3 (0.84-5.20); LYMPHOCYTES PERCENT AUTO 16 % (21-46); MONOCYTES ABSOLUTE AUTO 1.23 K/mm3 (0.16-1.47); MONOCYTES PERCENT AUTO 12 % (4-13); Mean Corpuscular HGB 33.2 pg (26.0-34.0); Mean Corpuscular Volume 101 fL (80-100); Mean Platelet Volume 11.6 fL (9.1-12.4); NEUTROPHILS ABSOLUTE AUTO 6.95 K/mm3 (1.96-9.15); NEUTROPHILS PERCENT AUTO 68 % (41-73); Platelet Count 427 K/mm3 (150-400); RDW Coefficient Variation 13.5 % (11.7-14.2); RDW Standard Deviation 49.6 fL (35.1-46.3); Red Blood Cell Count 3.91 M/mm3 (3.80-5.20); White Blood Cell Count 10.19 K/mm3 (4.00-11.30)
[2018-12-20 05:24] LABS: Albumin, Blood 3.3 g/dL (3.4-5.0); Anion Gap 8 mmol/L (6-16); Blood Urea Nitrogen 16 mg/dL (8-24); Bun/Creatinine Ratio 25.5 (12.0-20.0); CO2, Blood 34 mmol/L (21-32); Calcium, Blood 9.3 mg/dL (8.5-10.1); Chloride, Blood 97 mmol/L (98-108); Creatinine, Blood 0.63 mg/dL (0.40-1.00); Glomerular Filtration Rate >60 (60-); Glucose, Blood 85 mg/dL (70-99); Magnesium, Blood 2.2 mg/dL (1.6-2.4); Phosphorus, Blood 4.8 mg/dL (2.5-4.9); Potassium, Blood 3.8 mmol/L (3.5-5.5); Sodium, Blood 139 mmol/L (136-145)
--- NOTE | 2018-12-20 16:17 | NUR ---
PATIENT CONTINUES TO BE CONFUSED AND IS ORIENTED TO SELF ONLY. SHE HAS HAD 5 LARGE LOOSE STOOLS THIS SHIFT. BLADDER SCAN SHOWED OVER 900ML. PATIENT WAS STRAIGHT CATHED AND 1000 ML WERE REMOVED. PATIENT CONTINUES TO TRY TO PULL AT LINES AND GET OUT OF BED OFTEN SWINGING HER LEGS OVER AND ATTEMPTING TO GET UP FROM THE BED. SHE REDIRECTS EASILY BUT IS IMPULSIVE AND UNSAFE WITHOUT RESTRAINTS OR SUPERVISION.
[2018-12-21 04:58] LABS: Hematocrit 39.3 % (33.0-51.0); Hemoglobin 12.7 g/dL (11.5-16.0)
[2018-12-21 05:24] LABS: Magnesium, Blood 2.2 mg/dL (1.6-2.4)
[2018-12-21 05:26] LABS: Albumin, Blood 3.4 g/dL (3.4-5.0); Anion Gap 10 mmol/L (6-16); Blood Urea Nitrogen 12 mg/dL (8-24); Bun/Creatinine Ratio 17.3 (12.0-20.0); CO2, Blood 33 mmol/L (21-32); Calcium, Blood 9.6 mg/dL (8.5-10.1); Chloride, Blood 98 mmol/L (98-108); Creatinine, Blood 0.69 mg/dL (0.40-1.00); Glomerular Filtration Rate >60 (60-); Glucose, Blood 87 mg/dL (70-99); Phosphorus, Blood 4.6 mg/dL (2.5-4.9); Potassium, Blood 3.5 mmol/L (3.5-5.5); Sodium, Blood 141 mmol/L (136-145)
--- NOTE | 2018-12-21 06:53 | NUR ---
NOC SHIFT SUMMARY PT HAS BEEN CONFUSED, AGRESSIVE AT TIMES, AND VERY ANXIOUS THIS NIGHT. SHE HAS BEEN IN A NOHEMI VEST AND SOFT WRIST RESTRAINTS SHE IS CONTINUALY ATTEMPTING TO PULL AT LINES AND GET OUT OF BED. SHE IS A FALL RISK. TREATED WITH ATIVAN ONCE AND HALDOL TWICE THIS NIGHT WITH LITTLE IMPROVEMENT. NO ACUTE CHANGES NOTED FROM LAST NIGHT. WAS BLADDER SCANNED SHOWING 420 IN BLADDER. ORDER SAYS TO CATH AT 450ML. PT APPEARS IN NO ACUTE DISTRESS. REPORT TO ONCOMING RN.
--- NOTE | 2018-12-21 14:13 | NUR ---
PT STATE NEED FOR URINE VOID, ASSISTED TO BSC, NO OUTPUT. DR CHENG STATE STRAIT CATH/ORDER, NO NAVAS CATH. 650 ML OUT.
--- NOTE | 2018-12-21 16:07 | NUR ---
summary PT CONTINUES IN RESTRAINTS, CONFUSED, NON-REDIRECTABLE. ATTEMPT TO TAKE OUT OF WRIST RESTRAINT UNSUCCESSFUL, ATTEMPTS TO PULL OOUT NAVAS CATH. VERY WEAK, UNABLE TO STAND, REQUIRES 2 ASSIST STAND/PIVOT TO CHAIR. POOR APPETITE HOWEVER LIKES ENSURE. PT WAS PLEASANT CONFUSED THIS AM HOWEVER DAY GOES ON BECOMES MORE AGITATED, UNPLEASANT DEMEANOR, PRN ZYREXA 5MG GIVEN HOWEVER MINIMAL + RESULT. DR PALMER RECONSULT DR SUERO FOR MED REVIEW/ADJUST, HS SEROQUEL INCREASED TO 450MG. PT CONTINUES TO BE PLACEMENT ISSUE.
--- NOTE | 2018-12-21 16:25 | NUR ---
SUMMARY PT CONTINUES CONFUSED, SHE ATTEMPTS TO GET OOB W/O CALLING, GAIT UNSTEADY, HIGH FALL RISK. SHE CONTINUES IN RESTRAINTS. NO STATED PAIN TODAY. SHE IS NOT SHORT OF BREATH @ REST, BIOX 97% 1L. LUNGS DECREASED T/O. RESPTHER CONTINUES CHEST CPT THERAPY. PT TRIED TO VOID ON BSC HOWEVER UNABLE, BLADDER SCAN APPROX 650 ML, REQUIRE STRAIT CATH. VSS.
--- NOTE | 2018-12-22 05:11 | NUR ---
SOFT WRIST RESTRAINTS REMOVED AT THIS TIME. PT IS VERY PLEASANT AND COOPERATIVE W/CARE THIS AM. SHE ISN'T PULLING AT LINES OR VEST RESTRAINT AND SEEMS QUITE ALERT AND SENSICAL AT THIS TIME. STAFF EXPLAINED CALL LIGHT AGAIN AND INSTRUCTED THAT VEST MAY BE REMOVED WELL IF SHE DEMONSTRATES SHE CAN SAFELY CALL FOR ASSIST W/CONTINUOUS ATTEMPTS OOB BY SELF. WILL MONITOR CLOSELY.
[2018-12-22 05:13] LABS: Hematocrit 39.3 % (33.0-51.0); Hemoglobin 12.5 g/dL (11.5-16.0)
--- NOTE | 2018-12-22 05:14 | NUR ---
PT VOIDED 100 MLS. PVR WAS 285 MLS W/NO NEED TO ST.CATH PRN PER PARAMETERS.
--- NOTE | 2018-12-22 05:15 | NUR ---
SUMMARY: PT ORIENTED TO SELF BUT SEEMS CONFUSED OTHERWISE. SHE HAS BEEN PLEASANT AND COOPERATIVE W/CARE THIS SHIFT AND SLEPT MAJORITY OF NOCTE. PT WAS GIVEN BREAKS OUT OF SOFT WRIST RESTRAINTS W/MONITORING WHEN AWAKE AND SHE HASN'T MADE ANY ATTEMPTS TO PULL AT LINES/NOHEMI VEST SO WRIST RESTRAINTS HAVE NOW BEEN REMOVED. PT INSTRUCTED THAT VEST COULD BE REMOVED TOO IF SHE CAN SAFELY DEMONSTRATE TO CALL APPROPRIATELY W/O REPEATED ATTEMPTS OOB BY SELF. WILL REASSESS SITUATION. PT VOIDED X1 THIS SHIFT W/PVR 285 MLS THIS AM. NO NEED TO ST.CATH PRN PER RX'D PARAMETERS. RT DC'D O2 AND RESPS ARE E/U W/SPO2 WNL ON RA AND NO SOB NOTED W/EXERTION. GAIT UNSTEADY SO BED ALARM ON AND SBA W/FWW REQUIRED. NO ACUTE CHANGES, VSS/AFEBRILE. WILL REPORT TO DAY RN.
[2018-12-22 05:39] LABS: Albumin, Blood 3.2 g/dL (3.4-5.0); Anion Gap 8 mmol/L (6-16); Blood Urea Nitrogen 24 mg/dL (8-24); Bun/Creatinine Ratio 26.1 (12.0-20.0); CO2, Blood 36 mmol/L (21-32); Calcium, Blood 9.4 mg/dL (8.5-10.1); Chloride, Blood 95 mmol/L (98-108); Creatinine, Blood 0.92 mg/dL (0.40-1.00); Glomerular Filtration Rate >60 (60-); Glucose, Blood 119 mg/dL (70-99); Magnesium, Blood 2.2 mg/dL (1.6-2.4); Phosphorus, Blood 4.5 mg/dL (2.5-4.9); Potassium, Blood 3.4 mmol/L (3.5-5.5); Sodium, Blood 139 mmol/L (136-145)
--- NOTE | 2018-12-22 19:41 | NUR ---
SUMMARY NOC SHIFT RN REPORT THAT PT HAS BEEN APPROP OUT OF WRIST RESTRAINTS, FOLLOWING DIRECTION. THIS AM TALKED WITH PT ABOUT NEED FOR HER TO USE CALL SYSTEM FOR ASSIST OOB D/T UNSTEADY GAIT/FALL RISK, SHE VERBALIZE UNDERSTANDING. WE TRIALED HER OUT OF RESTRAINT. BEHAVIOR APPROP. RESTRAINTS D/C'D. BEHAVIOR HAS BEEN APPROP. ANTONELLA AMBULATED HER IN [place], GAIT CONTINUES WEAK SOMEWHAT IMPAIRED PER THERAPIST. HER MENTATION IS IMPROVING HOWEVER CONFUSION/DISORIENTATION CONTINUE. BED/CHAIR ALARMS & SCU MX CONTINUE. SHE HAS NOT EXPERIENCED URINARY RETENTION TODAY, UP TO [facility] [place] [facility], SUCCESSFUL VOIDS. ENVIRONMENTAL DEPARTMENT MANAGER PROVIDE SHOWER TODAY. VSS. NO PAIN ISSUES.
--- NOTE | 2018-12-22 23:31 | NUR ---
IV NOTED TO BE LEAKING DURING FLUSH FOLLOWING IV ABX. IV DC'D AND NEW 18G IV PLACED TO RMCKENNA AND ANA PAULA.
--- NOTE | 2018-12-23 04:42 | NUR ---
SUMMARY: A/OX3 AND MENTATION SEEMS TO BE IMPROVING BUT SHE CONT'S FORGETFULL AT TIMES. SHE WAS UNSURE OF PLACE SPECIFICS BUT KNEW SHE WAS "IN A FACILITY IN [place]". SHE IS CALM AND COOPERATIVE W/CARE AND HASN'T REQUIRED RESTRAINT REPLACEMENT. PT USES CALL LIGHT APPROPRIATELY AT TIMES BUT BED ALARM ON AND SCU MX IN PLACE FOR OCCASIONAL IMPULSIVITY. SBA REQUIRED TO TOILET/BSC. IV ABX RECIEVED BUT IV HAD TO BE REPLACED D/T PREVIOUS BEGINING TO LEAK. NEW 18G IV PLACED TO R.FA. PT VOIDED X2 THIS SHIFT W/PVR'S <[address] WASN'T REQUIRED. LS IMPROVING AND DIM T/O. NO CONGESTION HEARD THIS SHIFT. NO ACUTE CHANGES, VSS/AFEBRILE. WILL MONITOR AND REPORT TO DAY RN.
[2018-12-23 05:09] LABS: Hematocrit 40.4 % (33.0-51.0)
[2018-12-23 05:56] LABS: Albumin, Blood 3.5 g/dL (3.4-5.0); Anion Gap 9 mmol/L (6-16); Blood Urea Nitrogen 19 mg/dL (8-24); Bun/Creatinine Ratio 27.1 (12.0-20.0); CO2, Blood 34 mmol/L (21-32); Calcium, Blood 9.6 mg/dL (8.5-10.1); Chloride, Blood 96 mmol/L (98-108); Glomerular Filtration Rate >60 (60-); Glucose, Blood 101 mg/dL (70-99); Magnesium, Blood 2.1 mg/dL (1.6-2.4); Phosphorus, Blood 4.3 mg/dL (2.5-4.9); Potassium, Blood 3.3 mmol/L (3.5-5.5); Sodium, Blood 139 mmol/L (136-145)
--- NOTE | 2018-12-23 06:42 | NUR ---
K=3.3 THIS AM W/NEW ORDER FOR 20 MEQ PO X1 RX'D AND RECIEVED. TYLENOL PROVIDED PRN FOR C/O 7/10 LEG AND HIP PAIN, WILL MONITOR FOR EFFECT.
--- NOTE | 2018-12-23 17:35 | NUR ---
SHIFT SUMMARY NO ACUTE CHANGES. PATIENT WORKED WITH PT TODAY. POSSIBLE TRANSFER TO [facility] R/T [facility]. MRI FAXED TO [facility]. PATIENT DENIES PAIN, NAUSEA, AND SHORTNESS OF BREATH. CALL LIGHT IN REACH, WILL CONTINUE TO MONITOR.
--- NOTE | 2018-12-24 00:57 | NUR ---
PATIENT ACTIVATED BED ALARM X 2. PATIENT REPORTING SHE IS SUPPOSE TO MEET A FRIEND DARONIGHT DOWN THE [place]. PATIENT REOREINTED BACK INTO BED. BED ALARM ACTIVATED.
--- NOTE | 2018-12-24 03:45 | NUR ---
SHIFT SUMMARY PATIENT HAD NO ACUTE CHANGES OBSERVED THIS SHIFT. ACTIVATED BED ALARM X3 REPORTING SHE NEEDED TO MEET SOMEONE DOWN THE [place]. PATIENT REORIENTED BACK INTO BED AFTER A FEW MINUTES. HX DEMENTIA. VSS/AFEBRILE. DENIES PAIN, SOB, AND N/V. TAKES MEDS WHOLE WITH WATER. PIV REMAINS INTACT. IV ABX INFUSED. CXR-2V IN AM. CALL LIGHT IN REACH. BED ALARM ACTIVATED. WILL CONTINUE TO MONITOR UNTIL DAY SHIFT NURSE ASSUMES CARE.
[2018-12-24 05:18] LABS: Hematocrit 39.9 % (33.0-51.0); Hemoglobin 12.5 g/dL (11.5-16.0)
[2018-12-24 05:43] LABS: Albumin, Blood 3.4 g/dL (3.4-5.0); Anion Gap 7 mmol/L (6-16); Blood Urea Nitrogen 21 mg/dL (8-24); Bun/Creatinine Ratio 29.2 (12.0-20.0); CO2, Blood 33 mmol/L (21-32); Calcium, Blood 9.4 mg/dL (8.5-10.1); Chloride, Blood 98 mmol/L (98-108); Creatinine, Blood 0.72 mg/dL (0.40-1.00); Glomerular Filtration Rate >60 (60-); Glucose, Blood 101 mg/dL (70-99); Magnesium, Blood 2.1 mg/dL (1.6-2.4); Phosphorus, Blood 4.9 mg/dL (2.5-4.9); Potassium, Blood 3.7 mmol/L (3.5-5.5); Sodium, Blood 138 mmol/L (136-145)
--- NOTE | 2018-12-24 05:49 | NUR ---
PATIENT OUT FOR CXR-2V VIA W/C.
--- NOTE | 2018-12-24 06:13 | NUR ---
PATIENT BACK FROM CXR-2V VIA W/C. TOLERATED WELL. BACK IN BED. BED ALARM ACTIVATED. CALL LIGHT IN REACH.
--- NOTE | 2018-12-24 18:32 | NUR ---
SHIFT SUMMARY NO ACUTE CHANGES. PATIENT MEDICATED X 1 FOR PAIN TODAY. PATIENT WORKED WITH PT. SCHEDULED RT TREATMENTS. CARE MANAGEMENT WORKING ON SAFE DISCHARGE PLAN. REFERRAL TO DR. RANGEL AT [facility] NEEDED TO SCHEDULE SUREGERY FOR SPINAL MASS. NO COMPLAINTS OF NAUSEA OR SHORTNESS OF BREATH. CALL LIGHT IN REACH, WILL CONTINUE TO MONITOR.
--- NOTE | 2018-12-25 03:00 | NUR ---
Order for potassium 20 meq po now incorrectly entered on 12/20/18 with ordering provider of Catrachita Cooper MD, reentered with correct provider, Jose Cooper MD at this time.
--- NOTE | 2018-12-25 04:07 | NUR ---
SHIFT SUMMARY PATIENT HAD NO ACUTE CHANGES OBSERVED DURING THE SHIFT. AXOX 3 W/CONFUSION AT TIMES. PATIENT WATCHING COLLEGE BASKETBALL AT SHIFT CHANGE AND REPORTS SHE LOVES TO WATCH. BED EXIT X 3 TO USE BSC W/ASSIST. VSS/AFEBRILE. DENIES PAIN, SOB, AND N/V. PIV REMAINS INTACT. IV ABX INFUSED. TAKES MEDS WHOLE WITH WATER. COOPERATIVE WITH CARE. CALL LIGHT IN REACH. BED IN LOWEST POSITION. WILL CONTINUE TO MONITOR UNTIL DAY SHIFT NURSE ASSUMES CARE.
[2018-12-25 05:36] LABS: Hematocrit 37.3 % (33.0-51.0); Hemoglobin 11.8 g/dL (11.5-16.0)
[2018-12-25 06:02] LABS: Albumin, Blood 3.3 g/dL (3.4-5.0); Anion Gap 8 mmol/L (6-16); Blood Urea Nitrogen 23 mg/dL (8-24); Bun/Creatinine Ratio 36.2 (12.0-20.0); CO2, Blood 31 mmol/L (21-32); Calcium, Blood 9.4 mg/dL (8.5-10.1); Chloride, Blood 100 mmol/L (98-108); Creatinine, Blood 0.64 mg/dL (0.40-1.00); Glomerular Filtration Rate >60 (60-); Glucose, Blood 104 mg/dL (70-99); Magnesium, Blood 2.1 mg/dL (1.6-2.4); Phosphorus, Blood 4.7 mg/dL (2.5-4.9); Potassium, Blood 3.9 mmol/L (3.5-5.5); Sodium, Blood 139 mmol/L (136-145)
[2018-12-25] MEDS ORDERED: ACET325 PO (15:31)
[2018-12-25] MEDS ORDERED: ASPI81CH PO (15:33)
[2018-12-25] MEDS ORDERED: AMLO5 PO (15:33)
[2018-12-25] MEDS ORDERED: ATEN50 PO (15:38)
[2018-12-25] MEDS ORDERED: FURO40 PO (15:39)
[2018-12-25] MEDS ORDERED: Oyster Shell C500 MG PO (15:39)
[2018-12-25] MEDS ORDERED: GABA300 PO (15:40)
[2018-12-25] MEDS ORDERED: Micro-K10 MEQ PO (15:42)
[2018-12-25] MEDS ORDERED: TAMS.4ER PO (15:43)
[2018-12-25] MEDS ORDERED: CHOL10002 PO (15:44)
[2018-12-25] MEDS ORDERED: ALBU2.5V5 NEB (15:45)
[2018-12-25] MEDS ORDERED: TIOT18 INH (15:45)
--- NOTE | 2018-12-25 19:23 | NUR ---
DISHCARGE SUMMARY CLEMENCIA LEFT WITH HER GOOD FRIEND JUAN MIGUEL. PIV REMOVED, PAPERWORK GONE OVER WITH FRIEND AND PT, JUAN MIGUEL WILL CALL TO SET UP NEUROLOGY APPT AND MAKE SURE PT GETS TO PCP APPT NEXT WEEK. MEDS FAXED TO [facility], JUAN MIGUEL WILL PICK THEM UP AND MAKE SURE PT HAS A PILL BOX. PT HAS BEEN SBA TO BR. DENIED PAIN
== END 2018-12-25 18:15 | disposition home health service (06) | DRG 640 ==
LOC: ER 10:05 → PCU 16:58 → ICUE 16:58 → MEDS 16:58 → ERHOLD 16:58 → ICUE 18:46 → PCU 12-10 18:03 → MEDS 12-12 01:20
PROVIDERS: Emergency Medicine; Family Medicine; Internal Medicine Critical Care Medicine; Internal Medicine Nephrology; Nurse Practitioner Acute Care; ADMIT Hospitalist
PROC: 0B978ZZ Drainage of Left Main Bronchus, Via Natural or Artificial Opening Endoscopic (ICD-10-PCS; principal; 2018-12-15 13:30)
PROC: 0B938ZZ Drainage of Right Main Bronchus, Via Natural or Artificial Opening Endoscopic (ICD-10-PCS; 2018-12-15 13:30)
DX: E87.6 Hypokalemia (principal); J96.01 Acute respiratory failure with hypoxia; J69.0 Pneumonitis due to inhalation of food and vomit; I16.1 Hypertensive emergency; J98.19 Other pulmonary collapse; N17.9 Acute kidney failure, unspecified; I24.8 Other forms of acute ischemic heart disease; C72.1 Malignant neoplasm of cauda equina; R33.9 Retention of urine, unspecified; B95.61 Methicillin susceptible Staphylococcus aureus infection as the cause of diseases classified elsewhere; T42.4X5A Adverse effect of benzodiazepines, initial encounter; T48.1X5A Adverse effect of skeletal muscle relaxants [neuromuscular blocking agents], initial encounter; T40.2X5A Adverse effect of other opioids, initial encounter; I12.9 Hypertensive chronic kidney disease with stage 1 through stage 4 chronic kidney disease, or unspecified chronic kidney disease; N18.2 Chronic kidney disease, stage 2 (mild); E86.9 Volume depletion, unspecified; E87.70 Fluid overload, unspecified; E83.51 Hypocalcemia; E87.0 Hyperosmolality and hypernatremia; F17.210 Nicotine dependence, cigarettes, uncomplicated; E55.9 Vitamin D deficiency, unspecified; D64.9 Anemia, unspecified; E87.4 Mixed disorder of acid-base balance; J44.9 Chronic obstructive pulmonary disease, unspecified
CPT/HCPCS: 36415; 36600; 51701; 51702; 70450; 71045; 71046; 72158; 74177; 80047; 80048; 80053; 80069; 80076; 81001; 81050; 82088; 82150; 82248; 82306; 82330; 82374; 82435; 82533; 82550; 82553; 82570; 82803; 82947; 83690; 83735; 83835; 83880; 83970; 84100; 84132; 84156; 84244; 84295; 84443; 84484; 84550; 84585; 85014; 85018; 85025; 85027; 87070; 87077; 87086; 87147; 87186; 87205; 88108; 88312; 90686; 93005; 93010; 93306; 93922; 93971; 93975; 94640; 94667; 94668; 94760; 94762; 96365-59; 96366-59; 96367-59; 96368; 96375-59; 96376-59; 97110; 97116; 97162; 97530; 99285-25; A9577; G0008; G0480; J0360; J0696; J1120; J1170; J1630; J1650; J1885; J1940; J2060; J3010; J3370; J3475; J3480; J7040; J7050; J7120; Q9967

== ENCOUNTER 2018-12-27 23:15 | Inpatient (IN) | payer MEDICARE ==
[~2018-12-27] VITALS: Ht 152.4 cm; Wt 63.1 kg
[~2018-12-27 23:15] MED LIST: ACET325 PO; ALBU2.5V5 NEB; AMLO5 PO; ASPI81CH PO; ATEN50 PO; CHOL10002 PO; FURO40 PO; GABA300 PO; Micro-K10 MEQ PO; Oyster Shell C500 MG PO; TAMS.4ER PO; TIOT18 INH
[2018-12-27 23:49] LABS: BASOPHILS ABSOLUTE AUTO 0.06 K/mm3 (0.00-0.23); BASOPHILS PERCENT AUTO 1 % (0-2); EOSINOPHILS ABSOLUTE AUTO 0.02 K/mm3 (0.00-0.68); EOSINOPHILS PERCENT AUTO 0 % (0-6); Hematocrit 40.7 % (33.0-51.0); Hemoglobin 13.5 g/dL (11.5-16.0); IMMATURE GRAN ABSOLUTE AUTO 0.09 K/mm3 (0.00-0.10); IMMATURE GRAN PERCENT AUTO 1 % (0-1); LYMPHOCYTES ABSOLUTE AUTO 1.22 K/mm3 (0.84-5.20); LYMPHOCYTES PERCENT AUTO 9 % (21-46); MONOCYTES ABSOLUTE AUTO 0.73 K/mm3 (0.16-1.47); MONOCYTES PERCENT AUTO 6 % (4-13); Mean Corpuscular HGB 33.8 pg (26.0-34.0); Mean Corpuscular HGB Conc 33.2 g/dL (31.5-36.5); Mean Corpuscular Volume 102 fL (80-100); NEUTROPHILS ABSOLUTE AUTO 10.85 K/mm3 (1.96-9.15); NEUTROPHILS PERCENT AUTO 84 % (41-73); Platelet Count 357 K/mm3 (150-400); RDW Coefficient Variation 13.7 % (11.7-14.2); RDW Standard Deviation 51.7 fL (35.1-46.3); White Blood Cell Count 12.97 K/mm3 (4.00-11.30)
[2018-12-27 23:53] LABS: Source, Urine Catheter
[2018-12-27 23:56] LABS: Mean Platelet Volume 13.1 fL (9.1-12.4)
[2018-12-28 00:03] LABS: Bilirubin, Urine Neg (Neg); Blood, Urine Neg (Neg); Glucose Qualitative, Urine Neg (Neg); Ketones, Urine Neg (Neg); Leukocyte Esterase, Urine 1+ (Neg); Nitrite, Urine Neg (Neg); Protein, Urine 1+ (Neg); Specific Gravity, Urine 1.015 (1.003-1.022); Urobilinogen, Urine NORM (Normal)
[2018-12-28 00:05] LABS: Alanine Aminotransfer (ALT/SGP 27 U/L (12-78); Albumin, Blood 3.9 g/dL (3.4-5.0); Alk Phos 36 U/L (50-136); Anion Gap 8 mmol/L (6-16); Aspartate Aminotrans (AST/SGOT 26 U/L (12-37); Bilirubin, Total 0.7 mg/dL (0.1-1.0); Blood Urea Nitrogen 23 mg/dL (8-24); Bun/Creatinine Ratio 31.7 (12.0-20.0); CO2, Blood 26 mmol/L (21-32); Calcium, Blood 9.1 mg/dL (8.5-10.1); Chloride, Blood 101 mmol/L (98-108); Creatinine, Blood 0.73 mg/dL (0.40-1.00); Ethanol (Alcohol), Blood, Med <3 mg/dL; Glomerular Filtration Rate >60 (60-); Glucose, Blood 103 mg/dL (70-99); Potassium, Blood 3.6 mmol/L (3.5-5.5); Sodium, Blood 135 mmol/L (136-145); Total Protein, Blood 7.9 g/dL (6.4-8.2)
[2018-12-28 00:07] LABS: International Normalized Ratio 0.99; Prothrombin Time Results 10.5 Sec (9.7-11.5)
[2018-12-28 00:21] LABS: Influenza A Negative (NEGATIVE); Influenza B Negative (NEGATIVE)
[2018-12-28 00:29] LABS: U Amphetamine Screen Not Detected; U Barbituate Screen Not Detected; U Benzodiazapine Screen Not Detected; U Buprenorphine Screen Not Detected; U Cannabinoids Screen Not Detected; U Cocaine Screen Not Detected; U Methadone Screen Not Detected; U Methamphetamine Screen Not Detected; U Opiates Screen Not Detected; U Oxycodone Screen Not Detected; U Phencyclidine Screen Not Detected; U Propoxyphene Screen Not Detected
[2018-12-28 00:31] LABS: Appearance, Urine Hazy (Clear); Color, Urine Yellow (P-Yellow)
[2018-12-28 00:32] LABS: Amorphous Mod (0-Heavy); Bacteria Mod /hpf; Mucus Light (0-Heavy); Red Blood Cells, Urine Not Seen /hpf (0-2); Squamous Epithelial Cells Few /hpf (Few)
[2018-12-28 06:08] LABS: Hematocrit 36.2 % (33.0-51.0); Hemoglobin 11.6 g/dL (11.5-16.0); Mean Corpuscular HGB 32.6 pg (26.0-34.0); Mean Corpuscular Volume 102 fL (80-100); Platelet Count 320 K/mm3 (150-400); RDW Coefficient Variation 13.8 % (11.7-14.2); RDW Standard Deviation 51.8 fL (35.1-46.3); Red Blood Cell Count 3.56 M/mm3 (3.80-5.20); White Blood Cell Count 9.02 K/mm3 (4.00-11.30)
[2018-12-28 06:13] LABS: Mean Platelet Volume 13.3 fL (9.1-12.4)
[2018-12-28 06:27] LABS: Anion Gap 9 mmol/L (6-16); Blood Urea Nitrogen 18 mg/dL (8-24); Bun/Creatinine Ratio 24.6 (12.0-20.0); CO2, Blood 26 mmol/L (21-32); Calcium, Blood 8.4 mg/dL (8.5-10.1); Chloride, Blood 105 mmol/L (98-108); Creatinine, Blood 0.73 mg/dL (0.40-1.00); Glomerular Filtration Rate >60 (60-); Glucose, Blood 92 mg/dL (70-99); Potassium, Blood 3.5 mmol/L (3.5-5.5); Sodium, Blood 140 mmol/L (136-145)
--- NOTE | 2018-12-28 07:29 | NUR ---
ADMISSION: REPORT RECIEVED FROM ED RN. PT TO UNIT AT ABOUT 0450. UPON ASSESSMENT PT IS IN NO ACUTE DISTRESS, SEEMS PAINFUL WITH MOVEMENT. PT ABLE TO WALK TO BED WITH 1 ASSIST. PT STATES THAT SHE HAS PAIN AT [facility], MOANS AND LAYS ON HER SIDE TO HELP THE PAIN. VSS, PT DISORIENTED TO TIME ONLY, FOLLOWS COMMANDS. BED ALARM ON FOR SAFETY. WILL CALL DR. REYNOLDS FOR PAIN MANAGEMENT. TELE VERIFIED BY JUAN WOOD AT 0633. PT IS NSR, WITH RATE IN THE 70'S. WILL CTM PT STATUS. CALL LIGHT IN REACH, PT STATES UNDERSTANDING TO CALL FOR NEEDS.
--- NOTE | 2018-12-28 17:47 | NUR ---
SUMMARY NO ACUTE CHANGES T/O SHIFT. PT HAD ONE LOOSE BM THIS MORNING MIXED W/URINE. MEDICATED ONCE DURING SHIFT FOR COCCYX PAIN. SLEEPING AT THIS TIME. CALL LIGHT IN REACH.
[2018-12-28 19:34] LABS: Adenovirus F 40/41 Not Detected (NOT DETECT); Astrovirus Not Detected (NOT DETECT); Campylobacter Sp Not Detected (NOT DETECT); Cryptosporidium Not Detected (NOT DETECT); Cyclospora Cayetanensis Not Detected (NOT DETECT); E. Coli O157 Not Detected (NOT DETECT); Entamoeba Histolytica Not Detected (NOT DETECT); Enteroaggregative E. coli-EAEC Not Detected (NOT DETECT); Enteropathogenic E. coli-EPEC Not Detected (NOT DETECT); Enterotoxigenic E. coli-ETEC Not Detected (NOT DETECT); Giardia Lamblia Not Detected (NOT DETECT); Norovirus GI/GII Detected (NOT DETECT); Rotavirus A Not Detected (NOT DETECT); Sapovirus Not Detected (NOT DETECT); Shiga Toxin-prod E. coli-STEC Not Detected (NOT DETECT); Shigella/Enteroin E. coli-EIEC Not Detected (NOT DETECT); Vibrio Cholerae Not Detected (NOT DETECT); Vibrio Sp Not Detected (NOT DETECT); Yersinia Enterocolitica Not Detected (NOT DETECT)
[2018-12-28 19:35] LABS: Plesiomonas Shigelloides Not Detected (NOT DETECT); Salmonella Sp Not Detected (NOT DETECT)
--- NOTE | 2018-12-29 05:49 | NUR ---
SUMMARY PT REPORTING SUBLIMAZE ONLY CONTROLLING PAIN FOR SHORT PERIOD. MOANING WITH DISCOMFORT IN BETWEEN DOSES. I CALLED DR KEY AND OBTAINED ORDER FOR NORCO. I GAVE ONE AT THIS TIME AND WILL MONITOR ITS EFFECT.PT CONTINUED THROUGH THE NIGHT APPROPRIATE TO SITUATION.
[2018-12-29 05:56] LABS: BASOPHILS ABSOLUTE AUTO 0.08 K/mm3 (0.00-0.23); BASOPHILS PERCENT AUTO 1 % (0-2); EOSINOPHILS ABSOLUTE AUTO 0.18 K/mm3 (0.00-0.68); EOSINOPHILS PERCENT AUTO 2 % (0-6); Hematocrit 36.5 % (33.0-51.0); Hemoglobin 11.6 g/dL (11.5-16.0); IMMATURE GRAN ABSOLUTE AUTO 0.04 K/mm3 (0.00-0.10); IMMATURE GRAN PERCENT AUTO 0 % (0-1); LYMPHOCYTES ABSOLUTE AUTO 1.98 K/mm3 (0.84-5.20); LYMPHOCYTES PERCENT AUTO 21 % (21-46); MONOCYTES ABSOLUTE AUTO 1.24 K/mm3 (0.16-1.47); MONOCYTES PERCENT AUTO 13 % (4-13); Mean Corpuscular HGB 32.6 pg (26.0-34.0); Mean Corpuscular HGB Conc 31.8 g/dL (31.5-36.5); Mean Corpuscular Volume 103 fL (80-100); NEUTROPHILS PERCENT AUTO 63 % (41-73); Platelet Count 307 K/mm3 (150-400); RDW Coefficient Variation 13.8 % (11.7-14.2); RDW Standard Deviation 52.4 fL (35.1-46.3); Red Blood Cell Count 3.56 M/mm3 (3.80-5.20); White Blood Cell Count 9.52 K/mm3 (4.00-11.30)
[2018-12-29 05:58] LABS: Mean Platelet Volume 13.4 fL (9.1-12.4)
[2018-12-29 06:12] LABS: Anion Gap 7 mmol/L (6-16); Blood Urea Nitrogen 9 mg/dL (8-24); Bun/Creatinine Ratio 17.1 (12.0-20.0); CO2, Blood 27 mmol/L (21-32); Calcium, Blood 8.5 mg/dL (8.5-10.1); Chloride, Blood 109 mmol/L (98-108); Creatinine, Blood 0.53 mg/dL (0.40-1.00); Glomerular Filtration Rate >60 (60-); Glucose, Blood 89 mg/dL (70-99); Potassium, Blood 3.7 mmol/L (3.5-5.5); Sodium, Blood 143 mmol/L (136-145)
--- NOTE | 2018-12-29 17:20 | NUR ---
SUMMARY NO ACUTE CHANGES T/O SHIFT. PT CONTINUES TO HAVE LIQUID BMS. DENIES NAUSEA. MEDICATED TWICE DURING SHIFT PER ORDERS FOR COCCYX PAIN. PT DOZING OFF AND ON. DENIES ANY NEEDS AT THIS TIME. CALL LIGHT IN REACH.
[2018-12-30 05:02] LABS: BASOPHILS PERCENT AUTO 1 % (0-2); EOSINOPHILS PERCENT AUTO 4 % (0-6); Hematocrit 30.5 % (33.0-51.0); Hemoglobin 9.8 g/dL (11.5-16.0); IMMATURE GRAN PERCENT AUTO 1 % (0-1); LYMPHOCYTES PERCENT AUTO 31 % (21-46); MONOCYTES PERCENT AUTO 12 % (4-13); Mean Corpuscular HGB 33.2 pg (26.0-34.0); Mean Corpuscular HGB Conc 32.1 g/dL (31.5-36.5); Mean Corpuscular Volume 103 fL (80-100); Mean Platelet Volume 12.9 fL (9.1-12.4); NEUTROPHILS ABSOLUTE AUTO 3.18 K/mm3 (1.96-9.15); NEUTROPHILS PERCENT AUTO 52 % (41-73); Platelet Count 258 K/mm3 (150-400); RDW Coefficient Variation 13.5 % (11.7-14.2); RDW Standard Deviation 50.7 fL (35.1-46.3); Red Blood Cell Count 2.95 M/mm3 (3.80-5.20); White Blood Cell Count 6.13 K/mm3 (4.00-11.30)
[2018-12-30 05:03] LABS: BASOPHILS ABSOLUTE AUTO 0.07 K/mm3 (0.00-0.23); EOSINOPHILS ABSOLUTE AUTO 0.23 K/mm3 (0.00-0.68); IMMATURE GRAN ABSOLUTE AUTO 0.03 K/mm3 (0.00-0.10); LYMPHOCYTES ABSOLUTE AUTO 1.88 K/mm3 (0.84-5.20); MONOCYTES ABSOLUTE AUTO 0.74 K/mm3 (0.16-1.47)
[2018-12-30 05:34] LABS: Anion Gap 6 mmol/L (6-16); Blood Urea Nitrogen 7 mg/dL (8-24); CO2, Blood 22 mmol/L (21-32); Calcium, Blood 7.9 mg/dL (8.5-10.1); Chloride, Blood 114 mmol/L (98-108); Glomerular Filtration Rate >60 (60-); Glucose, Blood 87 mg/dL (70-99); Potassium, Blood 3.5 mmol/L (3.5-5.5); Sodium, Blood 142 mmol/L (136-145)
--- NOTE | 2018-12-30 06:43 | NUR ---
LYING IN SEMI FOLWERS WITH EYES CLOSED. MEDICATED X1 FOR BREAKTHROUGH PAIN. REPOSITIONS SELF FOR COMFORT. DENIES FURTHER NEEDS AT THIS TIME. SAFETY MEASURES IN PLACE. WILL GIVE HAND OFF TO ONCOMING SHIFT USING SBAR,
--- NOTE | 2018-12-30 10:53 | NUR ---
NEW MED CALLED TO [facility] PER PATIENT REQUEST.
[2018-12-30] MEDS ORDERED: SACC250C PO (14:13)
--- NOTE | 2018-12-30 15:04 | NUR ---
DISCHARGE: PT REPORTS READY TO GO HOME. PT A/O. REPORTS DRINKING WELL. PT/FAMILY REPORTS UNDERSTANDING OF DISCHARGE INSTRUCTIONS. GEOLOGY INSTRUCTOR ASSISTED WITH DISCHARGE. MEDS CALLED TO PHARMACY OT PT'S CHOICE. PT REPORTS VOIDING, DENIES HAVING DIARRHEA. IV OUT WNL EARLIER TODAY.
== END 2018-12-30 15:05 | disposition home or self-care (01) | DRG 871 ==
LOC: ER 23:15 → ERHOLD 12-28 01:19 → SURS 12-28 04:40
PROVIDERS: Emergency Medicine; Hospitalist; Nurse Practitioner Acute Care; ADMIT Internal Medicine
DX: A41.9 Sepsis, unspecified organism (principal); G92 Toxic encephalopathy; E87.2 Acidosis; G83.4 Cauda equina syndrome; A08.11 Acute gastroenteropathy due to Norwalk agent; Z79.82 Long term (current) use of aspirin; R65.20 Severe sepsis without septic shock; F17.210 Nicotine dependence, cigarettes, uncomplicated; I10 Essential (primary) hypertension; R33.9 Retention of urine, unspecified
CPT/HCPCS: 36415; 70450; 71046; 80048; 80053; 81001; 83605; 83735; 84145; 85025; 85027; 85610; 85730; 87040; 87077; 87086; 87186; 87324; 87507; 87804; 93005; 93010; 94640; 94760; 96361; 96365; 99285-25; A9270-GY; G0480; J0696; J1650; J2405; J3010; J7030; P9612

== ENCOUNTER → 2019-02-03 | Outpatient (CLI) | payer MEDICARE ==
[~2019-02-03] MED LIST changes: +SACC250C PO
[2019-02-06 16:21] LABS: Stool Occult Bld Immuno 1 Negative (NEGATIVE)
== END ==
LOC: LAB SHORT 07:30 → LAB 07:30
PROVIDERS: Nurse Practitioner Family
DX: Z12.11 Encounter for screening for malignant neoplasm of colon (principal)
CPT/HCPCS: G0328

== ENCOUNTER 2021-12-24 22:17 | Inpatient (IN) | payer MEDICARE ==
[~2021-12-24] VITALS: Ht 157.5 cm; Wt 73.6 kg
[2021-12-24 23:04] LABS: BASOPHILS ABSOLUTE AUTO 0.08 K/mm3 (0.00-0.23); BASOPHILS PERCENT AUTO 0 % (0-2); EOSINOPHILS ABSOLUTE AUTO 0.04 K/mm3 (0.00-0.68); EOSINOPHILS PERCENT AUTO 0 % (0-6); Hematocrit 38.3 % (33.0-51.0); Hemoglobin 13.1 g/dL (11.5-16.0); IMMATURE GRAN ABSOLUTE AUTO 0.11 K/mm3 (0.00-0.10); IMMATURE GRAN PERCENT AUTO 1 % (0-1); LYMPHOCYTES ABSOLUTE AUTO 1.84 K/mm3 (0.84-5.20); LYMPHOCYTES PERCENT AUTO 9 % (21-46); MONOCYTES ABSOLUTE AUTO 1.37 K/mm3 (0.16-1.47); MONOCYTES PERCENT AUTO 7 % (4-13); Mean Corpuscular HGB 33.1 pg (26.0-34.0); Mean Corpuscular HGB Conc 34.2 g/dL (31.5-36.5); Mean Corpuscular Volume 97 fL (80-100); Mean Platelet Volume 12.5 fL (9.1-12.4); NEUTROPHILS ABSOLUTE AUTO 16.64 K/mm3 (1.96-9.15); NEUTROPHILS PERCENT AUTO 83 % (41-73); Platelet Count 383 K/mm3 (150-400); RDW Coefficient Variation 13.7 % (11.7-14.2); RDW Standard Deviation 48.9 fL (35.1-46.3); Red Blood Cell Count 3.96 M/mm3 (3.80-5.20); White Blood Cell Count 20.08 K/mm3 (4.00-11.30)
[2021-12-24 23:12] LABS: Source, Urine Straight Cath
[2021-12-24 23:19] LABS: Bilirubin, Urine Neg (Neg); Blood, Urine 2+ (Neg); Glucose Qualitative, Urine Neg (Neg); Ketones, Urine 4+ (Neg); Leukocyte Esterase, Urine 2+ (Neg); Nitrite, Urine Pos (Neg); Protein, Urine 2+ (Neg); Urobilinogen, Urine NORM (Normal)
[2021-12-24 23:24] LABS: Appearance, Urine Cloudy (Clear); Color, Urine Pale Yellow (P-Yellow)
[2021-12-24 23:25] LABS: Squamous Epithelial Cells Few /hpf (Few)
[2021-12-24 23:25] LABS: Alanine Aminotransfer (ALT/SGP 45 U/L (12-78); Albumin, Blood 3.6 g/dL (3.4-5.0); Albumin/Globulin Ratio 0.9 (0.8-1.8); Alk Phos 58 U/L (50-136); Anion Gap 17 mmol/L (6-16); Aspartate Aminotrans (AST/SGOT 25 U/L (12-37); Bilirubin, Total 0.8 mg/dL (0.1-1.0); Blood Urea Nitrogen 13 mg/dL (8-24); Bun/Creatinine Ratio 15.5 (12.0-20.0); CO2, Blood 20 mmol/L (21-32); Calcium, Blood 9.3 mg/dL (8.5-10.1); Chloride, Blood 107 mmol/L (98-108); Creatinine, Blood 0.84 mg/dL (0.40-1.00); Globulin, Blood 3.9 g/dL (2.2-4.0); Glomerular Filtration Rate >60 (60-); Glucose, Blood 72 mg/dL (70-99); Potassium, Blood 2.9 mmol/L (3.5-5.5); Sodium, Blood 144 mmol/L (136-145); Total Protein, Blood 7.5 g/dL (6.4-8.2)
[2021-12-24 23:26] LABS: Amorphous Light (0-Heavy); Bacteria Mod /hpf; Mucus Light (0-Heavy)
[2021-12-24 23:30] LABS: U Amphetamine Screen Not Detected; U Barbituate Screen Not Detected; U Benzodiazapine Screen Not Detected; U Buprenorphine Screen Not Detected; U Cannabinoids Screen Not Detected; U Cocaine Screen Not Detected; U Methadone Screen Not Detected; U Methamphetamine Screen Not Detected; U Opiates Screen Not Detected; U Oxycodone Screen Not Detected; U Phencyclidine Screen Not Detected; U Propoxyphene Screen Not Detected
[2021-12-24 23:52] LABS: Thyroid Stimulating Hormone 0.622 uIU/mL (0.360-4.800)
[2021-12-24 23:58] LABS: Bicarbonate Venous 19.4 mmol/L (24.0-30.0); PCO2 Venous 34.3 mmHg (38-42); PO2 Venous 156 mmHg (38-42); pH Blood Venous 7.34 (7.34-7.37)
[2021-12-25 03:23] LABS: BASOPHILS ABSOLUTE AUTO 0.09 K/mm3 (0.00-0.23); BASOPHILS PERCENT AUTO 1 % (0-2); EOSINOPHILS ABSOLUTE AUTO 0.07 K/mm3 (0.00-0.68); EOSINOPHILS PERCENT AUTO 0 % (0-6); Hematocrit 33.6 % (33.0-51.0); Hemoglobin 11.4 g/dL (11.5-16.0); IMMATURE GRAN ABSOLUTE AUTO 0.05 K/mm3 (0.00-0.10); IMMATURE GRAN PERCENT AUTO 0 % (0-1); LYMPHOCYTES ABSOLUTE AUTO 1.56 K/mm3 (0.84-5.20); LYMPHOCYTES PERCENT AUTO 10 % (21-46); MONOCYTES ABSOLUTE AUTO 0.98 K/mm3 (0.16-1.47); MONOCYTES PERCENT AUTO 6 % (4-13); Mean Corpuscular HGB 33.2 pg (26.0-34.0); Mean Corpuscular HGB Conc 33.9 g/dL (31.5-36.5); Mean Corpuscular Volume 98 fL (80-100); Mean Platelet Volume 12.1 fL (9.1-12.4); NEUTROPHILS ABSOLUTE AUTO 13.03 K/mm3 (1.96-9.15); NEUTROPHILS PERCENT AUTO 83 % (41-73); Platelet Count 328 K/mm3 (150-400); RDW Coefficient Variation 13.8 % (11.7-14.2); Red Blood Cell Count 3.43 M/mm3 (3.80-5.20); White Blood Cell Count 15.78 K/mm3 (4.00-11.30)
[2021-12-25 03:36] LABS: Anion Gap 10 mmol/L (6-16); Blood Urea Nitrogen 12 mg/dL (8-24); Bun/Creatinine Ratio 15.1 (12.0-20.0); CO2, Blood 21 mmol/L (21-32); Calcium, Blood 7.9 mg/dL (8.5-10.1); Chloride, Blood 113 mmol/L (98-108); Glomerular Filtration Rate >60 (60-); Glucose, Blood 250 mg/dL (70-99); Potassium, Blood 2.6 mmol/L (3.5-5.5); Sodium, Blood 144 mmol/L (136-145)
--- NOTE | 2021-12-25 06:40 | NUR ---
ASSUMED CARE PT IS NON RESPOSIVE ONLY MOVED HEAD WHEN TURNING ON BRIGHT LIGHT. DAZE IS OFF TO THE LEFT. RIGHT ARM IS FLACID AND RIGHT SIDE FACIAL DROOP IS NOTED. BP IS ELEVATED. SATS ARE AT 100% ON ROOM AIR. PT WAS INCONTINENT OF URINE WHEN ARRIVED. BLADDER SCAN PER ED RN WAS <100. PT INFUSING D5 AT 200. NPO. LACERATION IN THE BACK OF HEAD WITH MITZI NOTED AND PICTURE IS IN CHART. BED ALARM ACTIVE. CALL LIGHT IS WITHIN REACH.
--- NOTE | 2021-12-25 07:52 | NUR ---
NURSING PCU DAYSHIFT: Assumed care of pt at approx 0700. Alert, responds to verbal stimuli, follows some commands though not detailed instructions, does not respond verbally, no moaning, occasional grunting, no words or attempts to vocalize noted. Pupils equal though sluggish, R facial droop, R side deficit noted. Able to rotate R shoulder though no movement of RUE noted below shoulder, very weak and subtle movement of RLE, not able to lift from bed though more movement than present in RUE. Small scattered bruises, redness and abrasion to R elbow, wound w/adriana present to back of head. Pt appears to be comfortable w/no noted pain though continues to constantly move in bed using L ext's. Tele in place, NSR w/HR 80's, SBP 105, no noted edema. L/S cta t/o, O2 sat upper 90's on RA, no cough noted. Abd SNT, BT+, incontinent of urine. PIV x1 w/D5 NS infusing at 200cc/hr. Plan for MRI today once screening form complete, will reach out to pt's contacts for information. Frequent rounding required d/t pt's inability to express needs and high fall risk. Continue Q2 hr CBG's as per d/o and Q4 neuro checks. NPO at this time, holding all a.m. PO meds d/t high aspiration risk. No s/s of acute distress, awaiting rounding from PMD, cont to monitor for any changes.
[2021-12-25 08:50] LABS: Magnesium, Blood 1.8 mg/dL (1.6-2.4); Phosphorus, Blood 2.6 mg/dL (2.5-4.9)
--- NOTE | 2021-12-25 18:07 | NUR ---
NURSING PCU DAYSHIFT SUMMARY: No significant changes noted t/o the shift. Neuro status remains unchanged w/R side deficits. Continues to follow some simple commands, remains nonverbal. Respiratory and cardiac status remain stable though occasional dry cough noted. Seen by PMD, new d/o received. D5 NS continues to infuse at 200cc/hr, IV abx as scheduled, 60 meq K+ rider administered, ASA supp given. CBG's have remained stable t/o shift, decreased frequency to Q4. Pt noted to have POLST on chart expressing DNR/DNI, code status changed. MRI completed, PMD notified of results. No s/s of acute distress at this time. Maintainted Q2 hour turn schedule to prevent skin breakdown. Good u/o, BM this afternoon. Pt remains unable to use call light, continue frequent rounding. Monitor until rpt is given to NOC RN.
--- NOTE | 2021-12-25 20:42 | NUR ---
UPDATE PHYSICIAN NOTIFIED OF K+ OF 2.8. ORDERS FOR 60 MEQ KCL NOW.
--- NOTE | 2021-12-25 23:47 | NUR ---
UPDATE PT ABLE TO RESPOND BY SQEEZING L HAND TO YES OR NO QUESTIONS. PT'S NEIGHBOR RAJI CALLED FOR UPDATE ON PT. THIS RN ASKED PT IF RAJI COULD RECEIVE UPDATE AND TO RESPOND WITH YES BY SQUEEZING HAND. PT SQEEZED THIS RN'S HAND. GROUND CREW CHIEF INFORMED OF SITUATION AND DECIDED THAT PT WAS ABLE TO MAKE THIS DECISION. PT'S NEIGHBOR UPDATED ON PT AT THIS TIME.
[2021-12-26 05:04] LABS: BASOPHILS PERCENT AUTO 1 % (0-2); EOSINOPHILS ABSOLUTE AUTO 0.18 K/mm3 (0.00-0.68); EOSINOPHILS PERCENT AUTO 1 % (0-6); Hematocrit 31.8 % (33.0-51.0); IMMATURE GRAN ABSOLUTE AUTO 0.04 K/mm3 (0.00-0.10); IMMATURE GRAN PERCENT AUTO 0 % (0-1); LYMPHOCYTES PERCENT AUTO 13 % (21-46); MONOCYTES ABSOLUTE AUTO 1.03 K/mm3 (0.16-1.47); MONOCYTES PERCENT AUTO 8 % (4-13); Mean Corpuscular HGB 33.6 pg (26.0-34.0); Mean Corpuscular HGB Conc 34.6 g/dL (31.5-36.5); Mean Corpuscular Volume 97 fL (80-100); Mean Platelet Volume 12.8 fL (9.1-12.4); NEUTROPHILS ABSOLUTE AUTO 10.57 K/mm3 (1.96-9.15); NEUTROPHILS PERCENT AUTO 78 % (41-73); Platelet Count 303 K/mm3 (150-400); RDW Coefficient Variation 14.2 % (11.7-14.2); RDW Standard Deviation 50.4 fL (35.1-46.3); Red Blood Cell Count 3.27 M/mm3 (3.80-5.20); White Blood Cell Count 13.62 K/mm3 (4.00-11.30)
[2021-12-26 05:21] LABS: Alanine Aminotransfer (ALT/SGP 27 U/L (12-78); Albumin, Blood 2.7 g/dL (3.4-5.0); Albumin/Globulin Ratio 0.9 (0.8-1.8); Alk Phos 44 U/L (50-136); Anion Gap 7 mmol/L (6-16); Aspartate Aminotrans (AST/SGOT 28 U/L (12-37); Bilirubin, Total 0.3 mg/dL (0.1-1.0); Blood Urea Nitrogen 4 mg/dL (8-24); Bun/Creatinine Ratio 5.4 (12.0-20.0); CO2, Blood 22 mmol/L (21-32); Calcium, Blood 8.1 mg/dL (8.5-10.1); Chloride, Blood 117 mmol/L (98-108); Creatinine, Blood 0.74 mg/dL (0.40-1.00); Globulin, Blood 2.9 g/dL (2.2-4.0); Glomerular Filtration Rate >60 (60-); Glucose, Blood 143 mg/dL (70-99); Potassium, Blood 3.1 mmol/L (3.5-5.5); Sodium, Blood 146 mmol/L (136-145); Total Protein, Blood 5.6 g/dL (6.4-8.2)
--- NOTE | 2021-12-26 06:18 | NUR ---
SHIFT SUMMARY PT OPENS EYES TO VERBAL STIMULI. R LEG HAS GROSS MOVEMENT. R ARM IS FLACCID. PT HAS MOBILITY OF L ARM AND L LEG. PT ABLE TO SQEEZE L HAND IN RESPONSE TO YES OR NO QUESTIONS. PT TURNED Q [address] FOR INCONTINENCE. PT HAVING LOOSE STOOLS DURING SHIFT. ORAL CARE PROVIDED Q 4 HRS. NEURO CHECKS DONE, SEE EHR. BP HYPERTENSIVE AT TIMES. WITHIN PERMISSIVE HTN RANGE, SEE EHR. BP STABLE. OXYGEN SATURATION MAINTAINED ABOVE 92% ON RA. PHYSICIAN NOTIFIED OF LOW K+, SEE NOTES AND ORDERS. WILL CONT TO MONITOR UNTIL REPORT GIVEN TO GHADAFT RN.
--- NOTE | 2021-12-26 06:55 | NUR ---
PHYSICIAN NOTIFIED PHYSICIAN NOTIFIED OF PT'S K+ LEVEL AT 3.1. SEE EMAR FOR ORDERS.
--- NOTE | 2021-12-26 07:03 | NUR ---
UPDATE PHARMACY UPDATED THAT MULTIPLE K+ ORDERS IN THIS AM. ONE FROM DR. EVANS AND ONE FROM DR. KEY. SPOKE WITH DR. EVANS AND ORDERS TO D/C K+ ORDER FROM DR. EVANS AT THIS TIME. PT TO RECIEVE [address] KEY.
--- NOTE | 2021-12-26 10:42 | NUR ---
AM CARE: PT REMAINS NON VERBAL THIS AM, R SIDE DEFICIT, R ARM FLACCID R LEG WEAKNESS R FACIAL DROOP, PT WILL MOSTLY MOANS/GROANS WHEN REPOSITIONED OR TURNED. PT HAS SCLEROTIC EDEMA ON RIGHT EYE, PT ABLE TO FOLLOW COMMANDS SLOWLY. PT HAS LOOSE FRONT TOOTH NOTED WHILE DOING ORAL CARE THIS AM, PROVIDER MADE AWARE, TO MONITOR FOR NOW. VITALS HRR SR 70'S, BP SYSTOLIC AT ACCEPTABLE RANGE 170'S, SATS ABOVE 95% ON RA, AFEBRILE. PT INCONTINENT OF BOTH BOWEL AND BLADDER HAD LOOSE BM THIS AM, BEDBATH COMPLETED. CAROTID ITALO AND ECHO WITH BUBBLE STUDY ORDERED, NEWS CLERK IN THE ROOM AT THIS TIME, D5 1/2NS RUNNING AT 125MLS/HR WITH POTASSIUM RUNNING CONCURRENTLY AT THIS TIME. ST/PT/OT EVAL TODAY. WILL MONITOR PT UNTIL END OF SHIFT
[2021-12-26 12:14] LABS: CHOL/HDL RATIO 2.8; Cholesterol 171 mg/dL (50-200); HDL Cholesterol 61 mg/dL (>39); LDL/HDL RATIO 1.4; Low Density Lipoprotein Chol 88 mg/dL (0-110); Triglycerides 108 mg/dL (30-160); Very Low Density Lipoprot Chol 21 mg/dL (6-32)
[2021-12-26 13:30] LABS: Anion Gap 7 mmol/L (6-16); Blood Urea Nitrogen 2 mg/dL (8-24); Bun/Creatinine Ratio 2.7 (12.0-20.0); CO2, Blood 22 mmol/L (21-32); Calcium, Blood 8.2 mg/dL (8.5-10.1); Chloride, Blood 117 mmol/L (98-108); Creatinine, Blood 0.73 mg/dL (0.40-1.00); Glomerular Filtration Rate >60 (60-); Glucose, Blood 149 mg/dL (70-99); Potassium, Blood 3.3 mmol/L (3.5-5.5); Sodium, Blood 146 mmol/L (136-145)
--- NOTE | 2021-12-26 17:06 | NUR ---
UPDATE: Pt's neighbor was able to find a phone number for her brother Marty Bennett. We were able to contact Marty, who informed us that Pt has an estranged daughter, a mother and another brother. Marty gave us information to get a hold of her mother, Ray Lau [phone] who lives in [place]. Pt's mother Ray was notified of her admission here to hospital as well as patients condition. Pt Mother states that she understands that she will need to be patients decision maker at this time. She denies questions. Face sheet was updated.
--- NOTE | 2021-12-26 17:14 | NUR ---
PT SUMMARY: SEE AM NOTE. PT REMAINED NON VERBAL, CAN FOLLOW SIMPLE COMMANDS ON AND OFF HAS SOME APRAXIA, SOMETIMES REFUSED TO FOLLOW COMMANDS OR RESISTIVE OF CARE, PT STARTED REFUSING ORAL CARE AT LUNCH TIME PT WONT OPEN HER MOUTH OR WILL SWING HER HAND ON THE SUCTION TUBE, PT HAS AUDIBLE GARBLE SOUND FROM MUCUS ON THE BACK OF THE THROAT, SPEECH THERAPIST ATTEMPTED INTRODUCE FLUID PO AND PT STARTS COUGHING, PT WAS SUCTIONED OFTEN HAS GOOD GAG REFLEX. PT AND OT WORKED WITH PT TOO TODAY HAD SOME ISSUES WITH APRAXIA WELL PT NOT REALLY PARTICIPATING NOR FOLLOWING SOME OTHER COMMANDS. PT STAYED IN BED ALL SHIFT, HAD 2 LOOSE BM FOR THE SHIFT, INCONTINENT OF BOTH BOWEL AND BLADDER, REPOSITIONED Q2 HRS. VITALS HRR SB/SR 55-70'S, BP SYSTOLIC 170-180'S AT, SATS ABOVE 95% ON RA, AFEBRILE. PT STARTED ON HEPARIN SQ FOR DVT PROPHYLAXIS. SENIOR ANDROID SOFTWARE ENGINEER WAS ABLE TO GET A HOLD OF FAMILY MEMBER MOTHER AND A BROTHER. INFORMATION IN THE CHART. NO OTHER ISSUES AT THIS TIME, WILL REPORT TO ONCOMING SHIFT
--- NOTE | 2021-12-26 21:46 | NUR ---
CARE ASSUMPTION PT IS ALERT BUT NON VERBAL. PT MAKE INTENTIONAL EYE CONTACT AND WILL TRACK THE RN IN THE ROOM. PT IS STILL NON-VERBAL AND IS UNABLE TO FOLLOW ALL COMMANDS DUE TO PARALYSIS ON R SIDE. BP REMAINS ELEVATED W SBP IN THE 170'S. O2 SATS >92% ON RM AIR. PT HAVING INCONTINENT STOOLS AND URINE VOIDS. FULL TIMMY BATH GIVEN AND ORAL CARE PROVIDED. PT CURRENTLY RESTING WATCHING TV IN NO DISTRESS.
[2021-12-27 05:13] LABS: BASOPHILS ABSOLUTE AUTO 0.07 K/mm3 (0.00-0.23); BASOPHILS PERCENT AUTO 1 % (0-2); EOSINOPHILS ABSOLUTE AUTO 0.19 K/mm3 (0.00-0.68); EOSINOPHILS PERCENT AUTO 1 % (0-6); Hemoglobin 11.2 g/dL (11.5-16.0); IMMATURE GRAN ABSOLUTE AUTO 0.04 K/mm3 (0.00-0.10); IMMATURE GRAN PERCENT AUTO 0 % (0-1); LYMPHOCYTES PERCENT AUTO 14 % (21-46); MONOCYTES ABSOLUTE AUTO 1.03 K/mm3 (0.16-1.47); MONOCYTES PERCENT AUTO 8 % (4-13); Mean Corpuscular HGB Conc 33.9 g/dL (31.5-36.5); Mean Corpuscular Volume 97 fL (80-100); Mean Platelet Volume 12.5 fL (9.1-12.4); NEUTROPHILS ABSOLUTE AUTO 9.96 K/mm3 (1.96-9.15); NEUTROPHILS PERCENT AUTO 76 % (41-73); Platelet Count 266 K/mm3 (150-400); RDW Coefficient Variation 14.1 % (11.7-14.2); RDW Standard Deviation 49.9 fL (35.1-46.3); Red Blood Cell Count 3.39 M/mm3 (3.80-5.20); White Blood Cell Count 13.19 K/mm3 (4.00-11.30)
[2021-12-27 05:33] LABS: Alanine Aminotransfer (ALT/SGP 28 U/L (12-78); Albumin, Blood 2.8 g/dL (3.4-5.0); Albumin/Globulin Ratio 0.9 (0.8-1.8); Alk Phos 50 U/L (50-136); Anion Gap 9 mmol/L (6-16); Aspartate Aminotrans (AST/SGOT 24 U/L (12-37); Bilirubin, Total 0.4 mg/dL (0.1-1.0); Blood Urea Nitrogen 2 mg/dL (8-24); Bun/Creatinine Ratio 2.8 (12.0-20.0); CO2, Blood 23 mmol/L (21-32); Calcium, Blood 8.3 mg/dL (8.5-10.1); Chloride, Blood 111 mmol/L (98-108); Creatinine, Blood 0.72 mg/dL (0.40-1.00); Globulin, Blood 3.2 g/dL (2.2-4.0); Glomerular Filtration Rate >60 (60-); Glucose, Blood 114 mg/dL (70-99); Potassium, Blood 2.8 mmol/L (3.5-5.5); Sodium, Blood 143 mmol/L (136-145)
--- NOTE | 2021-12-27 05:47 | NUR ---
NEWS WIRE PHOTO OPERATOR SUMMARY PT IS ALERT THIS SHIFT BUT STILL NON-VERBAL. PT'S R ARM FLACCID AND R LEG VERY WEAK. LEFT ARM AND LEG HAVE GOOD STRENGTH ALLOWING THE PT TO BE ABLE TO PARTICIPATE IN ROLLING IN BED. BP STILL ELEVATED W SBP 150'S-170'S. HR 70-80'S THIS SHIFT. O2 SATS >90% ON RM AIR. PT HAVING MULTIPLE EPISODES OF LOOSE GREEN STOOL THIS SHIFT. CBG'S REMAIN VERY STABLE THIS SHIFT IN THE 110'S. ORAL CARE AND REPOSITIONING PROVIDED THROUGHOUT THE SHIFT. WILL REPORT TO ONCOMING RN.
[2021-12-27 12:56] LABS: Adenovirus F 40/41 Not Detected (NOT DETECT); Astrovirus Not Detected (NOT DETECT); Campylobacter Sp Not Detected (NOT DETECT); Cryptosporidium Not Detected (NOT DETECT); Cyclospora Cayetanensis Not Detected (NOT DETECT); E. Coli O157 Not Detected (NOT DETECT); Entamoeba Histolytica Not Detected (NOT DETECT); Enteroaggregative E. coli-EAEC Not Detected (NOT DETECT); Enteropathogenic E. coli-EPEC Not Detected (NOT DETECT); Enterotoxigenic E. coli-ETEC Not Detected (NOT DETECT); Giardia Lamblia Not Detected (NOT DETECT); Norovirus GI/GII Not Detected (NOT DETECT); Plesiomonas Shigelloides Not Detected (NOT DETECT); Rotavirus A Not Detected (NOT DETECT); Salmonella Sp Not Detected (NOT DETECT); Sapovirus Not Detected (NOT DETECT); Shiga Toxin-prod E. coli-STEC Not Detected (NOT DETECT); Shigella/Enteroin E. coli-EIEC Not Detected (NOT DETECT); Vibrio Cholerae Not Detected (NOT DETECT); Vibrio Sp Not Detected (NOT DETECT); Yersinia Enterocolitica Not Detected (NOT DETECT)
--- NOTE | 2021-12-27 18:51 | NUR ---
Pt alert, non-verbal, but did respond to some commands (see shift assessment for details), opening mouth for oral care and smiling in response to interaction with staff. Noted right facial lack of smile, and right eye is sluggish in response to light. Right arm has tension to ROM, and right leg has no spontaneous movement, although babinski reflex noted to both the right and left feet. Blood pressure was elevated and given labetolol this evening for it, with very slight decrease 1 hour later. Normal sinus rhythm this shift
--- NOTE | 2021-12-27 22:55 | NUR ---
ASSUMED CARE OF PATIENT AT APPROXIMATELY 1910 FROM KARO Aviles RN. PATIENT ALERT BUT UNABLE TO ANSWER ANY QUESTIONS; ATTEMPTED PICTURE BOARD BUT PATIENT DOESNT USE THE BOARD EITHER; NONVERBAL; FOLLOWS SOME COMMANDS SUCH OPENING MOUTH FOR Q4H ORAL CARE AND ASSISTING WITH TURNING Q2H AND ATTENDS CHANGE. NO S/S OF PAIN NOTED. PATIENT PULLS GOWN OFF AND BLANKET AT TIMES. RIGHT SIDEDED DEFICIT AND NEGLECT; ABLE TO USE LEFT ARM AND LEG. PATIENT INCONTINENT OF URINE AND STOOL; ATTENDS IN PLACE; PATIENT WAS PUTTING LEFT HAND INTO ATTENDS WITH BM AND WIPING IT ON THINGS. SR ON TELE; OXYGEN SATURATION ABOVE 90% ON ROOM AIR; PPN INFUSING PER ORDER INTO PG.
--- NOTE | 2021-12-28 00:43 | NUR ---
ATTEMPTED TO CALL HOSPITALIST REGARDING PATIENT'S BLOOD PRESSURE ELEVATED AFTER IV LABETOLOL; NO ANSWER; WAITING CALLBACK.
--- NOTE | 2021-12-28 01:00 | NUR ---
PATIENT BP BELOW PARAMETERS OF 170 SYSTOLIC; WILL CALL HOSPITALIST IF BP IS ELEVATED AGAIN
[2021-12-28 04:15] LABS: Hematocrit 31.1 % (33.0-51.0); Hemoglobin 10.8 g/dL (11.5-16.0); Mean Corpuscular HGB 33.4 pg (26.0-34.0); Mean Corpuscular HGB Conc 34.7 g/dL (31.5-36.5); Mean Corpuscular Volume 96 fL (80-100); Mean Platelet Volume 12.9 fL (9.1-12.4); Platelet Count 239 K/mm3 (150-400); RDW Coefficient Variation 13.8 % (11.7-14.2); RDW Standard Deviation 48.9 fL (35.1-46.3); Red Blood Cell Count 3.23 M/mm3 (3.80-5.20)
[2021-12-28 04:16] LABS: BASOPHILS ABSOLUTE AUTO 0.05 K/mm3 (0.00-0.23); BASOPHILS PERCENT AUTO 0 % (0-2); EOSINOPHILS ABSOLUTE AUTO 0.24 K/mm3 (0.00-0.68); EOSINOPHILS PERCENT AUTO 2 % (0-6); IMMATURE GRAN ABSOLUTE AUTO 0.04 K/mm3 (0.00-0.10); IMMATURE GRAN PERCENT AUTO 0 % (0-1); LYMPHOCYTES ABSOLUTE AUTO 1.53 K/mm3 (0.84-5.20); LYMPHOCYTES PERCENT AUTO 12 % (21-46); MONOCYTES ABSOLUTE AUTO 0.78 K/mm3 (0.16-1.47); MONOCYTES PERCENT AUTO 6 % (4-13); NEUTROPHILS PERCENT AUTO 79 % (41-73); White Blood Cell Count 12.44 K/mm3 (4.00-11.30)
[2021-12-28 04:32] LABS: Anion Gap 9 mmol/L (6-16); Blood Urea Nitrogen 5 mg/dL (8-24); Bun/Creatinine Ratio 6.8 (12.0-20.0); CO2, Blood 24 mmol/L (21-32); Calcium, Blood 8.1 mg/dL (8.5-10.1); Chloride, Blood 110 mmol/L (98-108); Creatinine, Blood 0.74 mg/dL (0.40-1.00); Glomerular Filtration Rate >60 (60-); Glucose, Blood 121 mg/dL (70-99); Sodium, Blood 143 mmol/L (136-145)
--- NOTE | 2021-12-28 06:13 | NUR ---
PATIENT BLOOD PRESSURE IMPROVED AFTER IV LABETOLOL X2 LAST NIGHT. PATIENT ABLE TO SQUEEZE FINGER OR SMILE IN RESPONSE TO QUESTIONS. INCONTINENT X2 OF STOOL AND URINE. PG NOT DRAWING. NO OTHER CHANGES TO REPORT.
--- NOTE | 2021-12-28 07:50 | NUR ---
Bedside report received from Anne MARTINEZ at approx 0715. The pt appears to be sleeping, respirations even, with noticeable rise and fall of lower abdomen, no audible wheezing.
--- NOTE | 2021-12-28 12:04 | NUR ---
pt moved from chair to bed with use of ceiling lift. Attends change for bowel and bladder incontinence, large amount of urine. Stool is yellowish green liquid.
--- NOTE | 2021-12-28 12:24 | NUR ---
Pt resting in a recliner chair upon arrival. Pt awake but non verbal. Pt unable to follow commands during visit. Pt appears comfortable with no S/S of distress at this time. Spoke with Primary RN Luzma and discussed case. Called and spoke with Pt's mother Ray who is Pt's healthcare proxy. Provided update and reviewed plan of care. Discussed options for treatment. Ray reports given her condition and potential of diminished quality of life Pt would want to focus on comfort. Educated on comfort care philosophy with V/U made by Ray. Ray requests comfort care for Pt. Offered therapeutic listening and answered questions. Ray expresses appreciation and reports no other concerns at this time. Spoke with Dr Reilly and discussed case. Placed orders for comfort care, comfort care order set, and D/C maintenance medications per V/O from Dr Reilly. PPS 10% ADLs 6/ Palliative Care will remain available
--- NOTE | 2021-12-28 15:36 | NUR ---
PT WAS INCONTINENT OF URINE. JUAN CARE AND ATTENDS CHANGE COMPLETED. REPOSITIONED IN BED.
--- NOTE | 2021-12-28 17:03 | NUR ---
ROUNDED ON PATIENT, WHILE IN ROOM THE PATIENT WAS THROWING UP THICK LIGHT YELLOW PHLEGM. REPOSITIONED PATIENT TO HER RIGHT SIDE AND RAISED HOB. ORAL AND FACIAL CARE WAS DONE. NOTIFIED THE ASSIGNED RN (KARO) WITH THE PATIENT CONDITION. JUAN HUDDLESTON ADMINISTERED NAUSEA MEDICATION PER ORDER.
--- NOTE | 2021-12-28 17:57 | NUR ---
Pt was changed over to comfort care today. This evening she began vomiting; I was alerted by the SN. The pt was lying on her side, HOB elevated. Given zofran, and suction used to clean her mouth. She vomited twice after zofran was given, each time evacuated with suction yellowish clear fluid. Oral care was done. Afterwards it resolved, and she appeared to not be in any distress. Khanna catheter placed, very light yellow clear urine evacuated. Pt had liquid green stool. Pericare was done and barrier cream applied. She was attempting to turn to the right side, so she was repositioned to the right side, HOB elevated. Appeared tearful, grimacing. She was medicated for anxiety and appeared to be calm and comfortable afterwards.
--- NOTE | 2021-12-29 04:27 | NUR ---
SHIFT SUMMARY: PT HAS BEEN RESTING COMFORTABLY IN BED DURING SHIFT. OPENS EYES AT TIMES WHEN SPOKEN TO BUT NO REPSONCE GIVEN TO QUESTIONS. PT TURNED Q2H OFF BACK. PT ASSISTS WITH TURING SOMETIMES. MOUTH CARE DONE Q4H, PT DOES NOT TOLERATE WELL, CLENCHING TEETH WHEN ATTEMPTING TO CLEAN MOUTH. SAFETY MEASURES IN PLACE.
--- NOTE | 2021-12-29 06:17 | NUR ---
PCU-10 TRANSFER. REPORT TAKEN FROM CAMRON MARTINEZ. COMFORT CARE. TRANSFER COMPLETE.
--- NOTE | 2021-12-29 14:35 | NUR ---
updated patients mother on her care.
--- NOTE | 2021-12-29 18:38 | NUR ---
pt has been turned ever few hrs, she has remained dry, non verbal, seems confused, no acute changes this shift. call light in reach.
--- NOTE | 2021-12-30 04:44 | NUR ---
PT IS ON COMFORT CARE. REPOSITIONED AND ORAL CARE PROVIDED Q2H. PT COULD OBEY COMMANDS FOR ORAL CARE AND ASSISTED WITH SET UP HELP. DURING 0200 COMFORT CARE ASSESSMENT PT SOUNDED WET AND IN PAIN USING FLACC SCALE. MEDICATIONS GIVEN PER EMAR. PT NAVAS PATENT AND DRAINING CLEAR YELLOW URINE TO GRAVITY. PT INCONTINENT OF BOWELS X 1 HARD FORMED BALLS. HEEL PROTECTOR DRESSINGS CHANGED. PT IS AWAKE LYING IN BED.
--- NOTE | 2021-12-30 07:00 | NUR ---
ASSUMED CARE OF PT- FILEMON RECIEVED FROM NIGHT RN. PT LAYING IN BED, CALL LIGHT IN REACH, PER REPORT SHE IS NON VERBAL, HER EYES SEEM TO TRACK STAFF IN THE ROOM. NO S&S OF DISTRESS OR DISCOMFORT ARE NOTED AT THE TIME OF SHIFT CHANGE. WILL CTM.
--- NOTE | 2021-12-30 10:40 | NUR ---
[facility] CARE ASSESS[facility]- PT CURRENTLY SLEEPING SOUNDLY WITH NO S&S OF DISTRESS NOTED. WILL CTM AND MEDICATE IF NEEDED.
--- NOTE | 2021-12-30 11:00 | NUR ---
SOLAR INSTALLATION TECHNICIAN REPOSITIONED THE PT IN BED, NO S&S OF DISTRESS OR PAIN AT THIS TIME WILL CTM.
--- NOTE | 2021-12-30 13:00 | NUR ---
PT AGAIN REPOSITIONED WITH SMALL REPOSITIONING. PT DOES NOT APPEAR TO BE UNCOMFORTABLE AT THIS TIME, SHE SEEMS TO BLINK THE LEFT EYE MORE RAPIDLY THAN THE RIGHT. PT REMAINS NON-VERBAL. WILL CTM.
--- NOTE | 2021-12-30 15:00 | NUR ---
PT SLEEPING AT THIS TIME AND APPPEARS COMFORTABLE WILL REPOSITION AT A LATER TIME.
--- NOTE | 2021-12-30 16:16 | NUR ---
PT REPOSITIONED TO RIGHT SIDE LYING. MEDICATED FOR PAIN AFTER REPOSITION PT IS NOW SHOWING NON-VERBAL SIGNS OF PAIN. MEDICATED WITH 10MG SL ROXANOL. PT WAS ABLE TO FOLLOW INSTRUCTIONS TO OPEN HER MOUTH AND ALLLOW THE MEDICINE TO BE PLACED UNDER HER TOUNG. PT REMAINS NON VERBAL. ATTEMPTS HAVE BEEN MADE TO COMB HER HAIR TODAY BUT IT APPEARS TO BE VERY MATTED STAFF ARE COMBING TOLLERATED.
--- NOTE | 2021-12-30 18:20 | NUR ---
SHIFT SUMMARY- PT HAS HAD NO ACUTE CHANGE T/O THE SHIFT, SHE CONTINUES TO BE NON-VERBAL, MEDICATED FOR PAIN WITH PRN ROXANOL ONCE. Q2 TURNS TO PREVENT SKIN BREAKDOWN. PT IN BED CALL LIGHT IN REACH, SHE DOES NOT CALL AT ALL. ATTEMPTED TO COMB THE PT HAIR, IT IS VERY TANGLED AND MATTED. COMBED A SMALL PORTION OF IT UNTIL THE PT WAS NO LONGER TOLLERATING IT. WILL PASS ON TO MACHINE PRESERVATIVE FILLER BLANKET WEAVER THAT THE PT HAIR NEEDS MORE ATTENTION.
--- NOTE | 2021-12-31 04:08 | NUR ---
SHIFT SUMMARY PATIENT ON COMFORT CARE. NON VERBAL AND BEDREST. Q2 TURNS AND ORAL CARE PROVIDED. NO S/SX OF PAIN, SOB, AND N/V. RESTING IN BED AWAKE MOST OF THE SHIFT WITH EYES OPEN. CALL LIGHT IN REACH. BED IN LOWEST POSITION. WILL CONTINUE TO MONITOR UNTIL DAY SHIFT NURSE ASSUMES CARE.
--- NOTE | 2021-12-31 07:48 | NUR ---
ASSUMED CARE OF PT. RESTING WITH EYES OPEN SMILES WITH INTERACTION BUT DOES NPOT VERBALLY RESPOND TO QUESTIONS OR INTERACTION. PT APPEARS TO BE IN NO DISTRESS AT THIS TIME. RR E/U AND PAINAD IS 0/10.
--- NOTE | 2021-12-31 17:24 | NUR ---
SHIFT SUMMARY: PT ALERT T/OUT THE DAY BUT ORIENTATION CANNOT BE OBTAINED PT DOES NOT RESPOND TO QUESTIONS VERBALLY. SHE WILL WINK, SMILE, SHE WILL PUSH ITEMS AWAY SUCH ORAL SPONGES FOR ORAL CARE BUT NO OTHER RESPONSES COME FROM THE PT. PT DID NOT EXHIBIT ANY S/S OF PAIN T/OUT THE DAY, SHE DID NOT ATTEMPT TO MOVE FROM HER BED OR REPOSITION HERSELF. PT REPOSITIONED AND CHANGED NEEDED T/OUT THE DAY. NAVAS IN PLACE PATENT AND CLEAR YELLOW URINE DRAINING. PT MOTHER WILY CALLED TODAY AND REPORTED SHE WOULD BE FLYING IN TOMORROW TO VISIT WITH HER DAUGHTER. VISITOR POLICY DISCUSSED.
--- NOTE | 2022-01-01 06:39 | NUR ---
SHIFT SUMMARY ON COMFORT CARE. ALERT. NONVERBAL, UNABLE TO ANSWER QUESTIONS. MOVES LEFT ARM & LEG. ABLE TO UNDRESS & TAKE NIGHTGOWN OFF. TURNED Q2H. OFFERED PO CARE c EVERY REPOSITION, PT REFUSED FREQUENTLY- WOULD NOT OPEN MOUTH & CLENCHED TEETH SHUT. NAVAS PATENT & DRAINING. PT IRRITABLE, AGRESSIVE & TRIED SWINGING FISTS TOWARDS STAFF WHILE ATTEMPTING TO PERFORM CARE. GAVE 0.5MG IV ATIVAN & O.5 MG PO ROXANOL & PT MORE RELAXED DURING CARE. AWAITING SAFE DC PLAN. CALL LIGHT & BED ALARM IN PLACE.
--- NOTE | 2022-01-01 08:54 | NUR ---
PT RESTING WITH EYES SHUT RR E/U UPON SHIFT CHANGE. NO SIGNS OF PAIN AT THIS TIME, PAINAD 0/10. PT POSITIONED ON R SIDE.
--- NOTE | 2022-01-01 14:37 | NUR ---
Comfort Care Visit Pt resting in bed upon arrival. Pt is non verbal with eyes open. Pt appears comfortable with no S/S of distress at this time. Accompanied by Client Relations Representative Cat. Assisted Cat with repositioning Pt to her left side and heels floated with pillow. Spoke with Primary RN Sydnee and discussed case. Palliative Care will remain available.
--- NOTE | 2022-01-01 19:30 | NUR ---
SHIFT SUMMARY: PT ALERT BUT NON VERBAL NOR RESPONDS TO QUES. PT ON BEDREST. PT SLEPT MOST OF THE DAY AWAKE IN THE AFTERNOON. SHE REFUSED ORAL CARE EVERY TIME BY CLAMPING MOUTH SHUT AND PUSHING AWAY SPONGE WHEN ATTEMPTING TO COMPLETE ORAL CARE. PT SHOWED SIGNS OF PAIN WHEN REPOSITIONING THIS EVENING BY GRIMACING AND HITTING AT THIS RN SO GAVE ROXANOL FOR HER SIGNS OF PAIN. PT FAMILY ARRIVED LATE AFTERNOON AND GAVE THEM UPDATE. THEY PLAN TO COME BACK IN AROUND 9 AM TO GO OVER NEXT PLAN OF CARE.
--- NOTE | 2022-01-02 06:26 | NUR ---
SHIFT SUMMARY COMFORT CARE. NO ACUTE CHANGES THIS SHIFT. ALERT. NONVERBAL. MOVES L ARM & LEG FREELY. REFUSED PO CARE, PUSHED ORAL SWABS & TOOTHBRUSH AWAY & SHOOK FIST. GETS AGITATED, ANXIOUS @TIMES c CARE-MEDICATED 1X c 0.5MG ATIVAN & 10MG ROXANOL. PT RESTED WELL AFTERWARDS c EYES CLOSED & BODY LESS TENSE. REPOSITIONED Q2H. NAVAS PATENT & DRAINING CLEAR YELLOW URINE. CALL LIGHT & BED LARM IN PLACE.
--- NOTE | 2022-01-02 08:30 | NUR ---
PT IS RESTING WITH EYES SHUT RR E/U AT THIS TIME. NO S/S OF DISCOMFORT. PT REPOSITIONED. REFUSING ORAL CARE. BY PUSHING SPONGE AWAY WHEN ATTEMPTING TO PLACE IN MOUTH. PAINAD IS 0/10.
--- NOTE | 2022-01-02 10:14 | NUR ---
Comfort Care Visit Multiple visits this AM. 2nd visit offered for support as Pt's mother and Pt's brother has arrived. Pt resting in bed and is non verbal. Pt awake but unable to follow commands. Pt appears comfortable with no S/S of distress at this time. Offered therapeutic listening as Pt's mother Ray reports Pt's daughter is aware of Pt's condition but does not appear to be interested in being involved. Ray reports Pt and daughter have been estranged for quite some time. Answered questions and offered therapeutic listening. Family express appreciation and report no other concerns at this time. Caremanager arrives and this RN ended visit. Palliative Care will remain available.
--- NOTE | 2022-01-02 13:50 | NUR ---
Received referral from nurse child care center administrator (Erin Adkins) on 01/02/2022. Patient is to discharge with orders for hospice and family elected [facility]. Gathered supporting documentation for referral (face sheet, labs, imaging, progress notes, palliative care note, and H&P) and sent to [facility] Clinical Coordinator (Shyla Evangelista) for review of hospice appropriateness and ability to accept patient onto service post discharge. Will await further information from hospice central supply tech regarding the above. Alondra Weiss Referral Liaison
--- NOTE | 2022-01-02 19:41 | NUR ---
SHIFT SUMMARY: PT HAS CONTINUED TO BE NON VERBAL AND UNABLE TO RESPOND TO ANY QUESTIONS OR COMMANDS. PT AWAKE AT TIMES, SHOWS PAIN BY SQUINTING AND RUBBING AT LEFT EYE AND SIDE OF LEFT HEAD. ROXANOL EFFECTIVE IN TREATING PAIN. CONTINUES TO HAVE DARK YELLOW URINE PRODUCTION.
--- NOTE | 2022-01-03 05:38 | NUR ---
SHIFT SUMMARY NO ACUTE CHANGES THIS SHIFT. ALERT. NONVERBAL. COMFORT CARE. MEDICATED 1X c 10MG ROXANOL & 0.5MG ATIVAN FOR COMFORT & PAIN. PT RESTED WELL T/O NIGHT. TURNED & REPOSITIONED Q2. NAVAS PATENT & DRAINING DARK ORANGE URINE. REFUSES PO CARE. AWAITING HOSPICE PLACEMENT. WILL MONITOR.
--- NOTE | 2022-01-03 08:47 | NUR ---
oral care attempted with fresh swab. patient swatted nurse away. this nurse spoke softly in an attempt to reassure patient. pt continued to refuse so therefor efforts for oral care were dc'd
--- NOTE | 2022-01-03 16:10 | NUR ---
Pt resting in bed and remains non verbal. Offered gentle voice and therapeutic touch. Pt appears comfortable with no S/S of distress at this time. Spoke with Primary RN Gracia and discussed case. Palliative Care will remain available.
--- NOTE | 2022-01-03 16:36 | NUR ---
Received notification from [facility] strategic intelligence officer (Surendra Alvarado) that patient is hospice appropriate and able to be accepted onto service post discharge. Will attempt to meet with patient and family today to further discuss the above. Will continue to monitor and follow for discharge. Alondra Weiss Referral Liaison
--- NOTE | 2022-01-03 16:53 | NUR ---
Late Entry from previous note. Spoke with Pt's mother Ray over the phone and completed POLST. Will deliver copy of POLST to medical records upon MD signature. Pt's wishes are DNR and Comfort Measures Only.
--- NOTE | 2022-01-03 18:45 | NUR ---
SHIFT SUMMARY PATIENT ON COMFORT CARE, CONTINUES TO JUST STARE WHEN ASKED QUESTIONS. SEE PRIOR NOTE ABOUT ATTEMPTING ORAL CARE. PT RESTING COMFORTABLY THROUGHOUT THE SHIFT. NO ORAL INTAKE THIS SHIFT. BED IN LOW POSITION, CALL LIGHT WITHIN REACH. BED ALARM ON. POWERGLIDE FLUSHED, PATENT, THOUGH DOES NOT DRAW. CAPS CHANGED THIS SHIFT.
--- NOTE | 2022-01-04 07:56 | NUR ---
SHIFT SUMMARY: COMFORT CARE CONTINUED, PT REMAINS NONVERBAL THROUGHOUT SHIFT. MULTIPLE ATTEMPTS TO PROVIDE ORAL CARE, PT SWATTED AT STAFF WITH ANY ATTEMPTS FOR MOUTH SWABS OR MOUTH MOISTURIZER. Q2 ASSESSMENTS, REPOSITIONING AND ROUNDING. PT HAD DIFFICULTY FALLING ASLEEP- ATIVAN PRN ADMINISTERED AND ALLOWED PATIENT TO SLEEP AND EASE RESTLESSNESS. THIS MORNING PATIENT BEGAN TO MOAN AND BECOME AGGITATED AND RESTLESS PRN PAIN MEDICATION AND ANXIETY MEDICATION ADMINISTERED (REVIEW EMAR) AND PROVIDED RELIEF ALLOWING PATIENT TO SLEEP. NAVAS CATHETER DRAINING APPROPRIATELY. BED ALARM REMAINED ACTIVATED, BED IN LOW POSITION, CALL TAPIA IN REACH.
--- NOTE | 2022-01-04 08:00 | NUR ---
PT RESTING COMFORTABLY IN BED. SLATE WORKER ASSISSTED W/ BOOST/REPOSITION TO L SIDE. PT MOUTH APPEARS DRY, SKIN IS PEELING OFF LIPS. PT REFUSING ORAL CARE, CLAMPS MOUTH CLOSED, TURNS HEAD AWAY. ABLE TO APPLY CHAP STICK. JUAN CARE AND BRIEF CHANGED.
--- NOTE | 2022-01-04 11:30 | NUR ---
PT FAMILY @ BEDSIDE WAITING FOR CARE MANAGEMENT FOR PAPERWORK. FAMILY STATES PLAN TO TRANSFER TO [facility]
[2022-01-04 12:19] LABS: Influenza A, PCR NEGATIVE (NEGATIVE); Influenza B, PCR NEGATIVE (NEGATIVE); Resp Syncytial Virus, PCR NEGATIVE (NEGATIVE); SARS-Cov-2 (COVID-19) PCR, MMC NEGATIVE (NEGATIVE)
[2022-01-04] MEDS ORDERED: MORP20L SL (12:49)
[2022-01-04] MEDS ORDERED: TRANSDERM-SCOP1 EAC1 TD (12:50)
--- NOTE | 2022-01-04 13:50 | NUR ---
PT DISCHARGED PT DISCHARGED TO HOSPICE HOUSE IN [place]. TRANSPORTED VIA GURNEY. PACKET AND DC INFO PROVIDED TO TRANSPORTER. RN REPORT CALLED IN TO THE HOSPICE HOUSE. PARRIS CLAY NH'ED BY CHRISTINA MARTINEZ. NAVAS IN PLACE @ TIME OF DC. LEONOR NEG.
--- NOTE | 2022-01-07 09:00 | NUR ---
Review of vidal's records today- 01/07/2022 indicates that patient transferred to hospice house located in [place], [place] on Friday- 01/04/2022. Due to hospice house being located out of service area, [facility] will not be able to provide services to patient. Notified [facility] tribunal member (Surendra Alvarado) of the above. No further interventions required. Alondra Weiss Referral Liaison
== END 2022-01-04 14:04 | DRG 64 ==
LOC: ER 22:17 → ERHOLD 12-25 02:54 → PCU 12-25 02:54 → MEDS 12-29 06:03 → ENPENDDIS 01-04 13:41 → MEDS 01-04 14:04
PROVIDERS: Family Medicine; Hospitalist; Internal Medicine; Student in an Organized Health Care Education/Training Program; ADMIT Internal Medicine
PROC: 0HQ0XZZ Repair Scalp Skin, External Approach (ICD-10-PCS; principal; 2021-12-24)
PROC: 3E03329 Introduction of Other Anti-infective into Peripheral Vein, Percutaneous Approach (ICD-10-PCS; 2021-12-25)
DX: I63.512 Cerebral infarction due to unspecified occlusion or stenosis of left middle cerebral artery (principal); A41.9 Sepsis, unspecified organism; G92.8 Other toxic encephalopathy; N39.0 Urinary tract infection, site not specified; G81.91 Hemiplegia, unspecified affecting right dominant side; E87.6 Hypokalemia; Z20.822 Contact with and (suspected) exposure to COVID-19; I10 Essential (primary) hypertension; Z66 Do not resuscitate; Z51.5 Encounter for palliative care; Z90.710 Acquired absence of both cervix and uterus; Z98.890 Other specified postprocedural states; Z79.899 Other long term (current) drug therapy; Z79.82 Long term (current) use of aspirin; R29.724 NIHSS score 24; S01.01XA Laceration without foreign body of scalp, initial encounter; W18.30XA Fall on same level, unspecified, initial encounter
CPT/HCPCS: 0097U; 0241U; 12001; 36415; 51702; 70450; 70551; 72125; 80048; 80053; 80061; 81001; 82330; 82803; 82947; 83605; 83735; 84100; 84132; 84443; 85025; 87077; 87086; 87186; 90471; 90714; 92526; 92610; 93005; 93010; 93306; 93880; 96374; 96375; 97110; 97112; 97162; 97167; 97535; 99285-25; A9270; J0696; J1644; J2060; J2405; J3411; J3480; J7030; J7040; J7042; J7050; J7060